=== PATIENT | female | born 1985 | race Caucasian/White ===

== ENCOUNTER 2022-01-15 16:09 | Inpatient (IN) | payer OTHER, SELFPAY ==
[2022-01-15 16:11] VITALS: BP 142/93; PULSE 122; RESP 16; TEMP 36.7; O2SAT 98; BMI 28.3
--- NOTE | 2022-01-15 16:25 | EX.ED.DYSGE1 ---
HPI History of Present Illness Chief Complaint: ETOH Intox Informant: patient and family Narrative Narrative: 36-year-old female states that she is an alcoholic and would like to have inpatient detox. She states that she came to this decision last week and reached out to 180 on Saturday. She is very nervous and scared and reached out to them again today and called family notes that she was ready to seek help. She denies any pending legal issues. She states that she talked to her family doctor's office last week and told that she had been drinking and they called her in some medications. She states she has not been taking any of those medicines. Last drink was just prior to arrival. She denies any illicit drug use. [facility] Medical History Alcohol abuse delivery delivered Cholecystectomy planned Allergy/AdvReac Type Severity Reaction Status Date / Time adhesive tape AdvReac Rash Verified 01/15/22 16:13 Surgical History H/O eye surgery Social History (Updated 01/15/22 @ 16:[address] Chad Esparza DO) Smoking Status: Smoker, status unknown alcohol intake: current ROS ROS ED Constitutional Constitutional ED: Denies chills or weight loss Eyes Eyes: Denies change in vision or diplopia ENT ENT ED: Denies ear pain, rhinorrhea or sore throat Cardiovascular Cardiovascular: Denies chest pain, orthopnea, palpitations or racing heartbeat Respiratory/Chest Respiratory/Chest: Denies cough, dyspnea or orthopnea Gastrointestinal Gastrointestinal: Denies abdominal pain, diarrhea, nausea or vomiting Genitourinary Genitourinary ED: Denies dysuria, hematuria or urinary frequency Musculoskeletal Musculoskeletal: Denies arthralgias or myalgias Integumentary Denies abscess or rash Neurologic Neurologic: Denies headache(s) or weakness Psychiatric Psychiatric: Reports anxiety; Denies depression, suicidal ideation or suicidal thoughts Endocrine Endocrinology: Denies polydipsia, polyphagia or polyuria Allergic/Immunologic Allergic/Immunologic ED: Denies mouth swelling, tongue swelling or urticaria EXAM Physical Exam Const Vital Signs: 01/15/22 16:11 Temperature 98.1 F Temperature Source Temporal Pulse Rate 122 H Respiratory Rate 16 Blood Pressure 142/93 H Blood Pressure Mean 109 Pulse Ox 98 Oxygen Delivery Method Room Air Positive well nourished and well developed General Appearance ED: well developed HEENT Reports normocephalic, head/scalp atraumatic, TM's clear and moist mucous membranes Negative for trauma Tympanic Membrane ED: Yes TM's clear Eyes PERRL and EOMs intact bilaterally Neck no lymphadenopathy, supple and no JVD Resp normal respiratory effort and clear to auscultation bilaterally Cardio regular rate, regular rhythm and no murmurs GI normal to inspection, nondistended, normoactive bowel sounds and non-tender Palpation: soft Back/Spine no CVA tenderness and normal ROM Extremity normal to inspection General Extremety ED: Negative for edema General Extremity: Negative for edema Neuro oriented x3 and CN's II-XII intact bilaterally Sensorium / Orientation: alert Motor Exam: strength 5/5 throughout Psych mental status grossly normal Mood & Affect: Negative for depressed or tearful Skin no rashes or lesions noted and no wounds MDM MDM MDM Narrative Medical decision making narrative: Patient will be medically cleared and the patient will be admitted if she is not . Discharge Plan Dx/Rx/DC Orders Clinical Impression: Alcohol withdrawal Disposition Disposition: Acute Care Hospital [facility]
--- NOTE | 2022-01-15 16:35 | NURSING ---
MED SURG WHITE ALCOHOL WITHDRAWAL
--- NOTE | 2022-01-15 16:43 | HP.PCM.HOS_ITS ---
HPI - General General Date of Admission: 01/15/22 Date of Service: 01/15/22 Chief Complaint: EtOH abuse, detoxification request. HPI Narrative The patient is a 36 y/o F w/ PMHx: Asthma, Allergic rhinitis, EtOH abuse (recently started 08/2021 200-400 mL fireball and 1/ 750 ml 42 proof vodka daily) who presents to the [facility] ED on 01/15/22 with history of significant anxiety and depression noted that she started drinking August and had this from her family however this was eventually found out and following lengthy discussion with her family she was brought to the ED per her father for assistance with detoxification per her desire. Patient admits that she is depressed and anxious and has had poor appetite eating very minimally. She states she does not have any active hobbies and finds minimal rosa in anything. During evaluation patient would not make any eye contact and very flat affect extremely evident. Patient reports that her does not have any alcohol or substance abuse problem. She has 2 children at home who are age 6 and 9. In the ED patient does have mild tremors as well as mild nausea and poor intake and notes that she took a small amount of alcohol intake approximately 30 minutes to 1 hour prior to ED arrival. Initial evaluation in the ED included T98.1, heart rate 122, BP 142/93, respiratory rate 16, 98% on room air. [facility] Medical History (Updated 01/15/22 @ 17:17 by Maude Rascon) Alcohol abuse Anxiety Asthma Cholecystectomy planned Depression Environmental allergies GERD (gastroesophageal reflux disease) Migraines Home Medications albuterol 90 mcg INHALATION Q4H PRN PRN 01/15/22 [History Last Taken Unknown] mometasone-formoterol [Dulera] 2 puff INHALATION Q12H PRN 01/15/22 [History Last Taken 01/14/22] Allergy/AdvReac Type Severity Reaction Status Date / Time adhesive tape AdvReac Rash Verified 01/15/22 16:13 Family History (Updated 01/15/22 @ 16:[address] Leia Cox MD) Mother Cancer History of Breast CA. Father Hypertension Surgical History (Updated 01/15/22 @ 16:[address] Leia Cox MD) H/O section H/O eye surgery S/P cholecystectomy Social History (Updated 01/15/22 @ 16:[address] Leia Cox MD) household members: spouse and family Smoking Status: Never smoker alcohol intake: current alcohol intake frequency: 3 or more drinks per day details: Daily 200-400 mL fireball, 1/2, 750 ml bottle 42 proof vodka daily. substance use type: does not use ROS ROS Narrative Admission Review of Systems: CONSTITUTIONAL: No weight loss, fever, chills, + weakness or fatigue. HEENT: Eyes: No visual loss, blurred vision, double vision or yellow sclerae. Ears, Nose, Throat: No hearing loss, sneezing, congestion, runny nose or sore throat. SKIN: No rash or itching, lesions, wounds. CARDIOVASCULAR: No chest pain, chest pressure or chest discomfort, palpitations, edema, orthopnea, syncopal events. RESPIRATORY: No shortness of breath, cough or sputum, wheezing, hemoptysis. GASTROINTESTINAL: + anorexia, nausea, No vomiting or diarrhea, abdominal pain, melena, BRBPR. GENITOURINARY: No dysuria, frequency, urgency or retention. NEUROLOGICAL: + Mild tremors, No headache, dizziness, syncope, paralysis, ataxia, numbness or tingling in the extremities, focal weakness, change in bowel or bladder control, seizure. MUSCULOSKELETAL: No muscle, back pain, joint pain or stiffness. HEMATOLOGIC: No anemia, bleeding or bruising. LYMPHATICS: No enlarged nodes. No history of splenectomy. PSYCHIATRIC: + depression or anxiety. ENDOCRINOLOGIC: No reports of sweating, cold or heat intolerance. No polyuria or polydipsia. ALLERGIES: + history of asthma, hives, eczema or rhinitis. Vital Signs Vital Signs Vital Signs: 01/15/22 16:11 Temperature 98.1 F Temperature Source Temporal Pulse Rate 122 H Respiratory Rate 16 Blood Pressure 142/93 H Blood Pressure Mean 109 Pulse Ox 98 Oxygen Delivery Method Room Air Weight Weight: 155 lb Body Mass Index (BMI) 28.3 Physical Exam Narrative Physical Examination: General: Awake, alert, oriented x 3 and cooperative, seated upright in the ED bed, extremely flat affect, mild tremors evident. Skin: Normal color, normal turgor, no icterus, no cyanosis. HEENT: AT/NC, EOMI, PERRLA, dry MM, no carotid bruits or JVD noted. Lungs: CTA bilaterally, moderate effort, mild decrease BL bases, no rales, ronchi or wheezing. Heart: Tachycardic with regular rhythm; no gallop, rub audible. Abdomen: Soft, overweight, NTTP, ND, hyperactive distant BS, no HSM. Extremities: No cyanosis, clubbing, or edema. Neurological: Patient awake, alert, oriented as noted, cognitive function intact; pupils equally reactive to light and accommodation, cranial nerves II- XII grossly normal, moving all 4 extremities, no focal deficits, strength preserved, mild tremors noted, extremely flat affect and would not make eye contact unless requested. Psychiatric: Affect appears flat, evident depression, no obvious evidence of anxiety but history noted. Results Lab / Micro Data Result Diagrams: 01/15/22 17:00 01/15/22 17:00 Assessment & Plan Assessment/Plan (1) Alcohol withdrawal: QUALIFIERS: Complication of substance-induced condition: uncomplicated Qualified Code(s): F10.230 - Alcohol dependence with withdrawal, uncomplicated PLAN: The patient is a 36 y/o F w/ PMHx: Asthma, Allergic rhinitis, EtOH abuse starting recently 08/2021 who presents to the [facility] ED on 01/15/22 with history of significant anxiety and depression noted that she started drinking in August and had this from her family however this was eventually found out and following lengthy discussion with her family she was brought to the ED per her father for assistance with detoxification per her desire. #1. Acute EtOH Withdrawal: Will admit to medical surgical floor, routine labs obtained in the ED upon presentation and pending upon evaluation. Given interest in sobriety, will initiate and continue on protocol with taper course of Phenobarbital, scheduled gabapentin for seizure prophylaxis, as needed Catapres, Bentyl, Vistaril, IV fluids, IV antiemetics, Tylenol as needed for pain. Will consult Case management for assistance for transition to next level of rehabilitation care. Mag, phos pending. Maintain on CIWA protocol concurrently. #2. Chronic asthma with allergic rhinitis: We will have as needed albuterol, clarifying home medications. #3. DVT prophylaxis: Low risk, encourage ambulation. Charges/Coding Visit Charges Inpatient E&M: 17124 Init Hosp L2
[2022-01-15 17:12] VITALS: BP 112/82; PULSE 97; RESP 16; TEMP 36.7; O2SAT 99
[2022-01-15 17:20] LABS: Absolute Lymphocyte Count 1.49 X10^3/uL (0.83-4.51); Absolute Neutrophil Count 6.8 X10^3/uL (2.0-7.7); Basophil# 0.11 X10^3/uL; Basophil% 1.2 % (0-1); Eosinophil# 0.24 X10^3/uL; Eosinophils% 2.5 % (0-5); Hematocrit 38.4 % (37-47); Hemoglobin 12.5 g/dL (12.0-15.0); Lymphocyte # 1.49 X10^3/ul (0.83-4.51); Lymphocyte % 15.8 % (19-41); Mean Corp Hgb Conc 32.6 g/dL (32-36); Mean Corpuscular Hgb 30.2 pg (27.0-32.0); Mean Corpuscular Volume 92.8 fL (81-99); Monocyte# 0.77 X10^3/uL; Monocyte% 8.1 % (0-10); NRBC Flagged by Analyzer 0 % (0-5); Neutrophil % 71.9 % (47-70); Platelet Count 245 K/mm3 (150-450); RBC Distribution Width CV 13.9 % (11.6-14.6); RBC Distribution Width SD 47.3 fl (35.1-43.9); Red Blood Count 4.14 M/mm3 (4.2-5.4); White Blood Count 9.5 K/mm3 (4.4-11.0)
[2022-01-15 17:39] LABS: International Normalized Ratio 0.9; Prothrombin Time (Protime)PT. 12.3 SECONDS (11.7-14.9)
[2022-01-15 17:40] LABS: Internal QC Validated? YES +Cl - CLEAR BKGD; Pregnancy, Serum, hCG Quali. NEGATIVE Negative
[2022-01-15 17:47] LABS: ALB/GLOB Ratio 1.1 RATIO (0.9-2.4); AST(SGOT) 15 U/L (15-37); Alanine Aminotransfer ALT/SGPT 20 U/L (13-56); Alkaline Phosphatase 83 U/L (45-117); Anion Gap 8 (5-15); BUN 7 mg/dL (7-18); BUN/Creat Ratio 8.8 RATIO (10-20); Calcium,Total 8.4 mg/dL (8.5-10.1); Chloride 110 mmol/L (98-107); EST Glomerular Filtration Rate 85 mL/min (>60); Est Glom Filt Rate - Afr Amer 103 mL/min (>60); Estimated Creatinine Clearance 75.41 ml/min; Globulin 3.5 g/dL (2.2-4.2); Glucose 86 mg/dL (74-106); Magnesium 2.2 mg/dL (1.6-2.6); Phosphorus 1.3 mg/dL (2.5-4.9); Potassium 2.8 mmol/L (3.5-5.1); Protein, Total 7.5 g/dL (6.4-8.2); Sodium Level 141 mmol/L (136-145)
[2022-01-15 17:50] LABS: Amphetamine Urine VISTA NEGATIVE (<1000 ng/mL); Barbiturate Urine VISTA NEGATIVE (< 200 ng/mL); Benzodiazepine Urine VISTA NEGATIVE (< 200 ng/mL); Cocaine Urine VISTA NEGATIVE (< 300 ng/mL); Ecstacy Urine VISTA NEGATIVE (< 500 ng/mL); Methadone Urine VISTA NEGATIVE (< 300 ng/mL); PCP Urine VISTA NEGATIVE (< 25 ng/mL); THC Urine VISTA NEGATIVE (< 50 ng/mL); Vista UDS pH Range 6
[2022-01-15 18:07] VITALS: BMI 27.1
[2022-01-15 18:10] VITALS: BP 114/74; PULSE 92; RESP 18; TEMP 36.8; O2SAT 97
[2022-01-15] MEDS: Phenobarbital 32.4 MG Tablet PO ×2 (19:02→22:50)
[2022-01-15] MEDS: Lactated Ringers 1,000 ML 125 ML IV (19:31)
[2022-01-15] MEDS: 0.9% Saline Lock 10 ML Syringe IV (19:32)
[2022-01-15] MEDS: Ondansetron 8 MG Tablet PO (20:32)
[2022-01-15] MEDS: hydrOXYzine PAM 25 MG Capsule 50 MG PO (20:32)
[2022-01-15 22:48] VITALS: BP 102/73; PULSE 77; RESP 18; TEMP 37.2; O2SAT 97
[2022-01-15] MEDS: traZODone 100 MG Tablet PO (22:51)
[2022-01-16 03:15] VITALS: BP 99/70; PULSE 77; RESP 18; TEMP 36.4; O2SAT 98
[2022-01-16] MEDS: Phenobarbital 32.4 MG Tablet PO ×6 (03:19→22:31)
[2022-01-16] MEDS: Gabapentin 300 MG Capsule PO ×3 (03:19→22:32)
[2022-01-16] MEDS: Dicyclomine 10 MG Capsule 20 MG PO ×2 (03:19→17:46)
[2022-01-16] MEDS: Thiamine Hydrochloride 100 MG Tablet PO (06:53)
[2022-01-16] MEDS: Folic Acid 1 MG Tablet PO (06:53)
[2022-01-16 07:16] VITALS: O2SAT 96
[2022-01-16] MEDS: Potassium Chloride Oral Tablet 20 MEQ 60 MEQ PO (07:22)
[2022-01-16 08:40] VITALS: BP 105/62; PULSE 87; RESP 16; TEMP 36.9; O2SAT 98
[2022-01-16] MEDS: hydrOXYzine PAM 25 MG Capsule 50 MG PO ×3 (08:50→17:46)
--- NOTE | 2022-01-16 10:46 | PCM.PN.HOSP ---
Subjective Subjective Patient states she had some nausea and vomiting yesterday but vomiting has improved. Still some intermittent nausea. No diarrhea. Complains of some tremor and anxiety. Eye contact is poor throughout her conversation. Objective Data Objective Data Vital Signs: Vital Signs Temp Pulse Resp BP Pulse Ox 98.4 F 87 16 105/62 98 01/16/22 08:40 01/16/22 08:40 01/16/22 08:40 01/16/22 08:40 01/16/22 08:40 Oxygen Delivery Method Room Air Weight: 67.4 kg Body Mass Index (BMI) 27.1 Intake & Output: Intake and Output for Last 24 Hours 01/14/22 01/15/22 01/16/22 23:59 23:59 23:59 Intake Total 1000 / 1000 Balance 1000 / 1000 Lab / Micro Data Result Diagrams: 01/15/22 17:00 01/15/22 17:00 Labs: Laboratory Results - last 24 hr 01/15/22 16:50: Urine Opiates Screen NEGATIVE, Urine Methadone Screen NEGATIVE, Ur Barbiturates Screen NEGATIVE, Ur Phencyclidine Scrn NEGATIVE, Ur Amphetamines Screen NEGATIVE, MDMA (Ecstasy) Screen NEGATIVE, U Benzodiazepines Scrn NEGATIVE, Urine Cocaine Screen NEGATIVE, U Cannabinoids Screen NEGATIVE, Ur Drug Screen Comment 01/15/22 17:00: WBC 9.5, RBC 4.14 L, Hgb 12.5, Hct 38.4, MCV 92.8, MCH 30.2, MCHC 32.6, RDW Std Deviation 47.3 H, RDW Coeff of Jordan 13.9, Plt Count 245, MPV 10.0, Immature Gran % (Auto) 0.500, Neut % (Auto) 71.9 H, Lymph % (Auto) 15.8 L, Casey % (Auto) 8.1, Eos % (Auto) 2.5, Baso % (Auto) 1.2 H, Absolute Neuts (auto) 6.8, Absolute Lymphs (auto) 1.49, Nucleated RBC % 0 01/15/22 17:00: PT 12.3, INR 0.9 01/15/22 17:00: Sodium 141, Potassium 2.8 L, Chloride 110 H, Carbon Dioxide 23.0, Anion Gap 8, BUN 7, Creatinine 0.80, Estim Creat Clear Calc 75.41, Est GFR (MDRD) Af Amer 103, Est GFR (MDRD) Non-Af 85, BUN/Creatinine Ratio 8.8 L, Glucose 86, Calcium 8.4 L, Magnesium 2.2, Total Bilirubin 0.60, AST 15, ALT 20, Alkaline Phosphatase 83, Total Protein 7.5, Albumin 4.0, Globulin 3.5, Albumin/Globulin Ratio 1.1 01/15/22 17:00: Ethyl Alcohol 182.0 01/15/22 17:00: Serum , Qual NEGATIVE 01/15/22 17:00: Phosphorus 1.3 L Physical Exam Const alert, oriented x3, no apparent distress, average body habitus and well nourished Exam Limitations: no limitations HEENT head/scalp atraumatic and moist oral mucous membranes HEENT Narrative: Dentition is good, Mallampati 2, no thrush Head and Scalp: normocephalic Resp normal respiratory effort, no retractions, no use of accessory muscles and clear to auscultation bilaterally Auscultation: Negative for crackles, rales, rhonchi or wheezes Cardio regular rate, regular rhythm, S1 normal heart sound, S2 normal heart sound, no murmurs, no rub, no gallops, no clicks and no JVD GI normal to inspection, nondistended, normoactive bowel sounds, soft to palpation, non-tender and non-distended; Negative for hepatosplenomegaly Extremity no clubbing, cyanosis or edema Peripheral Pulses: Yes pulses 2+ throughout Neuro oriented x3, CN's II-XII intact bilaterally, moves all extremities and no focal motor deficits Sensorium / Orientation: awake and alert Speech: speech normal Psych Psych Narrative: Affect is flat, eye contact is poor Mood & Affect: depressed Assessment & Plan Assessment/Plan (1) Hypokalemia: (2) Hypophosphatemia: PLAN: Acute alcohol withdrawal -Patient has been drinking about 500 cc to 750 cc of fireball daily and approximately one half bottle of vodka -Has been drinking heavily since approximately September -Phenobarbital taper started -Continue supportive medications -180 consult pending Hypokalemia -60 mEq of p.o. potassium ordered -Repeat potassium in a.m. Hypophosphatemia -30 mmol of sodium phosphate ordered -Repeat Phos level in a.m. Asthma -Continue as needed albuterol inhaler -Continue home Dulera Depression -Patient with extremely poor eye contact -Would benefit greatly from psychiatric/psychologist/counseling intervention -We will start Lexapro 10 mg DVT prophylaxis -Low risk -Early ambulation protocol Charges/Coding Visit Charges Inpatient E&M: 77992 Subs Hosp L2
[2022-01-16] MEDS: Ondansetron 8 MG Tablet PO (11:32)
--- NOTE | 2022-01-16 12:15 | ADDICTION ---
This editorial writer met with PT to conduct ASAM, MSE, AUDIT, DUDIT assessments and to plan for d/c. PT A+Ox4 and participated actively. All assessments completed and placed in PT's chart. PT plans to f/u with follow-up treatment services, however she wanted to discuss it with her family upon d/c. This worker offered resources based on her listed wants and needs. PT did not indicate a need for transportation post d/c from [facility].
[2022-01-16 13:58] VITALS: BP 107/68; PULSE 78; RESP 16; TEMP 36.9; O2SAT 100
[2022-01-16 15:23] LABS: Anion Gap 4 (5-15); BUN 6 mg/dL (7-18); Calcium,Total 8.6 mg/dL (8.5-10.1); Chloride 107 mmol/L (98-107); Creatinine, Serum 0.75 mg/dL (0.55-1.02); EST Glomerular Filtration Rate 91 mL/min (>60); Est Glom Filt Rate - Afr Amer 110 mL/min (>60); Estimated Creatinine Clearance 80.44 ml/min; Glucose 95 mg/dL (74-106); Potassium 3.6 mmol/L (3.5-5.1); Sodium Level 139 mmol/L (136-145)
[2022-01-16 22:27] VITALS: BP 90/59; PULSE 87; RESP 16; TEMP 36.8; O2SAT 97
[2022-01-16] MEDS: Ibuprofen 600 MG Tablet PO (22:31)
[2022-01-16] MEDS: traZODone 100 MG Tablet PO (22:31)
[2022-01-17] MEDS: Phenobarbital 32.4 MG Tablet PO ×6 (03:09→23:01)
[2022-01-17] MEDS: hydrOXYzine PAM 25 MG Capsule 50 MG PO ×4 (03:10→21:39)
[2022-01-17] MEDS: Dicyclomine 10 MG Capsule 20 MG PO ×3 (03:10→15:21)
[2022-01-17 03:13] VITALS: BP 105/59; PULSE 81; RESP 16; TEMP 36.8
[2022-01-17] MEDS: Gabapentin 300 MG Capsule PO ×2 (06:38→18:54)
[2022-01-17 09:07] VITALS: BP 102/58; PULSE 77; RESP 18; TEMP 36.4; O2SAT 100
[2022-01-17] MEDS: Thiamine Hydrochloride 100 MG Tablet PO (09:20)
[2022-01-17] MEDS: Folic Acid 1 MG Tablet PO (09:20)
[2022-01-17] MEDS: Ibuprofen 600 MG Tablet PO (09:21)
[2022-01-17] MEDS: Ondansetron 8 MG Tablet PO ×2 (09:21→18:54)
[2022-01-17] MEDS: Loratadine 10 MG Tablet PO (11:44)
--- NOTE | 2022-01-17 12:22 | PCM.PN.HOSP ---
Subjective Subjective Patient states she is having some continued nausea, anxiety, and tremor. Asks for an antihistamine due to a flareup of her allergies. No further emesis or diarrhea. Indicates she plans to follow-up as an outpatient with 180. Objective Data Objective Data Vital Signs: Vital Signs Temp Pulse Resp BP Pulse Ox 97.5 F L 77 18 102/58 L 100 01/17/22 09:07 01/17/22 09:07 01/17/22 09:07 01/17/22 09:07 01/17/22 09:07 Oxygen Delivery Method Room Air Weight: 67.4 kg Body Mass Index (BMI) 27.1 Intake & Output: Intake and Output for Last 24 Hours 01/15/22 01/16/22 01/17/22 23:59 23:59 23:59 Intake Total 1000 / 1000 Balance 1000 / 1000 Lab / Micro Data Result Diagrams: 01/15/22 17:00 01/16/22 14:46 Labs: Laboratory Results - last 24 hr 01/16/22 14:46: Sodium 139, Potassium 3.6, Chloride 107, Carbon Dioxide 28.0, Anion Gap 4 L, BUN 6 L, Creatinine 0.75, Estim Creat Clear Calc 80.44, Est GFR (MDRD) Af Amer 110, Est GFR (MDRD) Non-Af 91, BUN/Creatinine Ratio 8.0 L, Glucose 95, Calcium 8.6, Magnesium 2.0 Physical Exam Const alert, oriented x3, no apparent distress, average body habitus and well nourished Constitutional Narrative: Middle-aged white female walking around room, eye contact is extremely poor, appears nontoxic and comfortable Exam Limitations: no limitations HEENT head/scalp atraumatic and moist oral mucous membranes HEENT Narrative: Mallampati is 2, no thrush Head and Scalp: normocephalic Resp normal respiratory effort, no retractions, no use of accessory muscles and clear to auscultation bilaterally Auscultation: Negative for crackles, rales, rhonchi or wheezes Cardio regular rate, regular rhythm, S1 normal heart sound, S2 normal heart sound, no murmurs, no rub, no gallops, no clicks and no JVD GI normal to inspection, nondistended, normoactive bowel sounds, soft to palpation, non-tender and non-distended; Negative for hepatosplenomegaly Extremity no clubbing, cyanosis or edema Neuro oriented x3, moves all extremities and no focal motor deficits Neuro Narrative: Very fine tremor noted Sensorium / Orientation: awake and alert Speech: speech normal Psych Psych Narrative: Affect is flat, eye contact remains extremely poor Mood & Affect: depressed Assessment & Plan Assessment/Plan (1) Alcohol withdrawal: QUALIFIERS: Complication of substance-induced condition: uncomplicated Qualified Code(s): F10.230 - Alcohol dependence with withdrawal, uncomplicated (2) Seasonal allergies: PLAN: Acute alcohol withdrawal -Patient has been drinking about 500 cc to 750 cc of fireball daily and approximately one half bottle of vodka -Has been drinking heavily since approximately September -Continue phenobarbital taper -Continue supportive medications -180 consult has evaluated the patient and the plan is to follow-up as an outpatient Hypokalemia - resolved Hypophosphatemia - resolved Seasonal allergies -We will start Claritin -Could consider nasal spray depending on effectiveness of Claritin Asthma -Continue as needed albuterol inhaler -Continue home Dulera Depression -Patient with extremely poor eye contact -Would benefit greatly from psychiatric/psychologist/counseling intervention -Continue Lexapro 10 mg daily DVT prophylaxis -Low risk -Early ambulation protocol Charges/Coding Visit Charges Inpatient E&M: 67644 Subs Hosp L2
[2022-01-17] MEDS: Mag Hydrox/Al Hydrox/Simeth 30 ML UDC PO (13:33)
[2022-01-17] MEDS: Acetaminophen 325 MG Tablet 650 MG PO (13:33)
[2022-01-17] MEDS: Escitalopram Oxalate 10 MG Tablet PO (13:34)
[2022-01-17 13:37] VITALS: BP 92/65; PULSE 95; RESP 18; TEMP 36.9; O2SAT 98
--- NOTE | 2022-01-17 14:49 | CASEMGMT ---
Social Work Note SW updated that pt is depressed. SW in to speak with pt. SW introduced self and role at [facility]. Pt states that she is doing ok, states she feels like garbage today due to the withdrawal symptoms. Pt states that she is used to being around people so being isolated from people while at [facility] is different. Pt states that she was sober for a year and half and then decided to drink again. SW asked pt if anything happened/stress led to her drinking. 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 SW spoke with pt about stress and provided support to pt. Pt states that she barely gets to talk to her . Pt states that he works second shift so unfortunately he is not someone that she can talk to regarding stress. Pt states that her took the week off from work while pt is at [facility] so he can take care of the children. Pt states that she does have history of Anxiety. Pt states that she takes Buspar and Clonazepam. Pt denied any depression. Pt denied any history of suicidal thoughts/plans/ideations. Pt denied any current suicidal thoughts/plans/ideations. Pt states that she see's a counselor named Del at [facility] 1x a week. Pt states that her plan at discharge is to resume counseling with Del and to complete IOP program at [facility]. Pt denied any concerns or needs at this time. Demetrice Ferro TRAVELING CONSTRUCTION SUPERINTENDENT, FAMILY PRACTICE MD
[2022-01-17 15:19] VITALS: BP 104/67; PULSE 83; RESP 18; TEMP 36.5; O2SAT 98
[2022-01-17 21:33] VITALS: BP 101/75; PULSE 89; RESP 18; TEMP 36.9; O2SAT 99
[2022-01-17] MEDS: traZODone 100 MG Tablet PO (21:39)
[2022-01-18 03:36] VITALS: BP 103/69; PULSE 105; RESP 16; TEMP 36.9; O2SAT 98
[2022-01-18] MEDS: hydrOXYzine PAM 25 MG Capsule 50 MG PO ×4 (03:46→20:21)
[2022-01-18] MEDS: Phenobarbital 32.4 MG Tablet PO ×4 (03:46→20:20)
[2022-01-18 08:24] VITALS: BP 113/69; PULSE 94; RESP 18; TEMP 36.4; O2SAT 98
[2022-01-18] MEDS: Dicyclomine 10 MG Capsule 20 MG PO ×2 (08:26→15:35)
[2022-01-18] MEDS: Ondansetron 8 MG Tablet PO (08:26)
[2022-01-18] MEDS: Thiamine Hydrochloride 100 MG Tablet PO (08:26)
[2022-01-18] MEDS: Folic Acid 1 MG Tablet PO (08:27)
[2022-01-18] MEDS: Escitalopram Oxalate 10 MG Tablet PO (08:27)
[2022-01-18] MEDS: Ibuprofen 600 MG Tablet PO ×2 (08:27→20:21)
[2022-01-18] MEDS: Loratadine 10 MG Tablet PO (08:27)
[2022-01-18 09:45] VITALS: O2SAT 98
--- NOTE | 2022-01-18 11:37 | PCM.PN.HOSP ---
Subjective Subjective Patient reports persistent nausea with emesis this morning. P.o. intake she reports has been poor. Affect is still extremely flat and eye contact is poor. Patient wanting to minimally interact. Objective Data Objective Data Vital Signs: Vital Signs Temp Pulse Resp BP Pulse Ox 97.6 F L 94 18 113/69 98 01/18/22 08:24 01/18/22 08:24 01/18/22 08:24 01/18/22 08:24 01/18/22 09:45 Oxygen Delivery Method Room Air Weight: 67.4 kg Body Mass Index (BMI) 27.1 Intake & Output: Intake and Output for Last 24 Hours 01/16/22 01/17/22 01/18/22 23:59 23:59 23:59 Intake Total 1000 / 1000 360 / 360 Balance 1000 / 1000 360 / 360 Lab / Micro Data Result Diagrams: 01/15/22 17:00 01/16/22 14:46 Physical Exam Const alert, oriented x3, no apparent distress, average body habitus and well nourished Constitutional Narrative: Middle-aged white female walking sitting up in bed coloring in a coloring book, eye contact is extremely poor, appears nontoxic and comfortable Exam Limitations: no limitations HEENT head/scalp atraumatic and moist oral mucous membranes HEENT Narrative: Mallampati 2, no thrush Head and Scalp: normocephalic Resp normal respiratory effort, no retractions, no use of accessory muscles and clear to auscultation bilaterally Auscultation: Negative for crackles, rales, rhonchi or wheezes Cardio regular rate, regular rhythm, S1 normal heart sound, S2 normal heart sound, no murmurs, no rub, no gallops, no clicks and no JVD GI normal to inspection, nondistended, normoactive bowel sounds, soft to palpation, non-tender and non-distended; Negative for hepatosplenomegaly Extremity no clubbing, cyanosis or edema Peripheral Pulses: Yes pulses 2+ throughout Neuro oriented x3, moves all extremities and no focal motor deficits Neuro Narrative: Very fine tremor noted Sensorium / Orientation: awake and alert Speech: speech normal Psych Psych Narrative: Affect is flat, eye contact remains extremely poor Mood & Affect: depressed Assessment & Plan Assessment/Plan (1) Alcohol withdrawal: QUALIFIERS: Complication of substance-induced condition: uncomplicated Qualified Code(s): F10.230 - Alcohol dependence with withdrawal, uncomplicated (2) Seasonal allergies: PLAN: Acute alcohol withdrawal -Patient has been drinking about 500 cc to 750 cc of fireball daily and approximately one half bottle of vodka -Has been drinking heavily since approximately September -Continue phenobarbital taper --> taper will be completed on the a.m. of 01/20/2022 -Continue supportive medications -180 consult has evaluated the patient and the plan is to follow-up as an outpatient Seasonal allergies -Continue Claritin -Could consider nasal spray depending on effectiveness of Claritin Asthma -Continue as needed albuterol inhaler -Continue home Dulera Depression -Patient with extremely poor eye contact -Would benefit greatly from psychiatric/psychologist/counseling intervention -Continue Lexapro 10 mg daily--> started this hospitalization DVT prophylaxis -Low risk -Early ambulation protocol Charges/Coding Visit Charges Inpatient E&M: 31248 Subs Hosp L2
[2022-01-18] MEDS: Albuterol 2.5 MG/3 ML VIAL.NEB. INHALATION (12:37)
[2022-01-18 12:43] VITALS: PULSE 82; RESP 20
--- NOTE | 2022-01-18 13:43 | ADDICTION ---
Addiction therapist met w/pt today. She reports that she is feeling some anxiety about going home. She reports that she has hidden bottles in random places and is worried her wont find them all.Therapist encouraged her to write a list of places they are hidden and we could pass the information onto him. Pt reports she is ready to continue her recovery at home. Supportive counseling was given.
[2022-01-18 15:33] VITALS: BP 108/74; PULSE 92; RESP 18; TEMP 36.8; O2SAT 98
[2022-01-18] MEDS: Gabapentin 300 MG Capsule PO (15:35)
[2022-01-18 20:16] VITALS: BP 122/66; PULSE 78; RESP 18; TEMP 36.9; O2SAT 97
[2022-01-18] MEDS: traZODone 100 MG Tablet PO (23:13)
[2022-01-19 02:50] VITALS: BP 107/59; PULSE 93; RESP 18; TEMP 36.9; O2SAT 96
[2022-01-19] MEDS: Phenobarbital 32.4 MG Tablet PO ×4 (02:55→20:10)
[2022-01-19] MEDS: hydrOXYzine PAM 25 MG Capsule 50 MG PO ×3 (02:59→17:06)
[2022-01-19] MEDS: Gabapentin 300 MG Capsule PO ×3 (02:59→20:46)
[2022-01-19 07:01] VITALS: O2SAT 95
[2022-01-19 08:00] VITALS: BP 103/69; PULSE 82; RESP 18; TEMP 36.7; O2SAT 97
[2022-01-19] MEDS: Loratadine 10 MG Tablet PO (08:03)
[2022-01-19] MEDS: Escitalopram Oxalate 10 MG Tablet PO (08:03)
[2022-01-19] MEDS: Thiamine Hydrochloride 100 MG Tablet PO (08:03)
[2022-01-19] MEDS: Folic Acid 1 MG Tablet PO (08:03)
[2022-01-19] MEDS: Ondansetron 8 MG Tablet PO ×2 (08:08→17:06)
[2022-01-19] MEDS: Ibuprofen 600 MG Tablet PO ×2 (08:08→23:21)
--- NOTE | 2022-01-19 12:32 | PCM.PN.HOSP ---
Documented by User: Vahid MCCLURE 01/19/22 12:38 Subjective Subjective Patient is a 36-year-old female comfortably resting in bed, alert and orient x3. Patient denies any current withdrawal symptoms, feels that her N/V/D and restless legs have improved from admission. Does not appear in acute distress. Objective Data Objective Data Vital Signs: Vital Signs Temp Pulse Resp BP Pulse Ox 98.1 F 82 18 103/69 97 01/19/22 08:00 01/19/22 08:00 01/19/22 08:00 01/19/22 08:00 01/19/22 08:00 Oxygen Delivery Method Room Air Weight: 148 lb 9.465 oz Body Mass Index (BMI) 27.1 Intake & Output: Intake and Output for Last 24 Hours 01/17/22 01/18/22 01/19/22 23:59 23:59 23:59 Intake Total 360 / 360 Balance 360 / 360 Lab / Micro Data Result Diagrams: 01/15/22 17:00 01/16/22 14:46 Physical Exam Const alert, oriented x3 and no apparent distress HEENT head/scalp atraumatic and moist oral mucous membranes Head and Scalp: normocephalic Eyes PERRL, EOMs intact bilaterally and conjunctivae normal Neck no lymphadenopathy, supple and no JVD Resp normal respiratory effort, no retractions and no use of accessory muscles Cardio regular rate, regular rhythm and no JVD GI normal to inspection, nondistended, normoactive bowel sounds and soft to palpation Extremity normal to inspection, full ROM and no clubbing, cyanosis or edema Skin no rashes or lesions noted, no wounds and skin turgor normal Neuro CN's II-XII intact bilaterally Psych affect normal Assessment & Plan Assessment/Plan (1) Alcohol withdrawal: QUALIFIERS: Complication of substance-induced condition: uncomplicated Qualified Code(s): F10.230 - Alcohol dependence with withdrawal, uncomplicated (2) Hypokalemia: (3) Hypophosphatemia: PLAN: Day 4 Discharge planning: Current plan is for patient to discharge home and follow-up with [facility] behavioral services as an outpatient. 1) acute alcohol withdrawal Patient reports an overall improvement in her nausea, vomiting and diarrhea. Reports that her restless legs have improved and reports that her sleep was improved last night. CIWA AR score 8. We will continue phenobarb taper through 01/20, continue thiamine and folic acid, continue supportive medications, patient has 180 consult scheduled on discharge. 2) asthma Not in acute exacerbation, currently satting 97% on room air. Continue Dulera and as needed albuterol. 3) depression Continue Lexapro. 4) seasonal allergies Continue Claritin. DVT prophylaxis - Not indicated. Patient seen by Vahid Espinoza PA-C, under the supervision of Dr. Morin. Time spent on patient care: 9 minutes. Documented by User: Dr. Damien Morin MD 01/19/22 15:52 Objective Data Lab / Micro Data Result Diagrams: 01/15/22 17:00 01/16/22 14:46 Charges/Coding Addendum Addendum: Dr. Morin: I personally reviewed the chart and examined the patient, and agree with the above findings. 36-year-old female here for alcohol detox. She says that she has a counselor that she will follow-up with next week however if she would like to complete her phenobarbital taper, her last dose is this evening and at around 9 PM. She does note that her hallucinations have discontinued and she currently has a CIWA of 1. Clinical time spent in all aspects of patient care: 20 minutes
[2022-01-19] MEDS: Acetaminophen 325 MG Tablet 650 MG PO (13:00)
[2022-01-19 14:32] VITALS: BP 121/86; PULSE 92; RESP 18; TEMP 36.6; O2SAT 96
[2022-01-19] MEDS: Fluticasone 0.05% 1 SPRAY NASAL.SRY 2 SPRAY NASAL (17:06)
[2022-01-19 20:09] VITALS: BP 122/80; PULSE 91; RESP 18; TEMP 36.4; O2SAT 98
[2022-01-19] MEDS: traZODone 100 MG Tablet PO (23:21)
[2022-01-19 23:33] VITALS: BP 112/72; PULSE 72; RESP 17; TEMP 36.6; O2SAT 99
[2022-01-20] MEDS: hydrOXYzine PAM 25 MG Capsule 50 MG PO ×2 (02:30→07:20)
[2022-01-20 02:38] VITALS: BP 104/64; PULSE 78; RESP 18; TEMP 36.6; O2SAT 98
[2022-01-20] MEDS: Ondansetron 8 MG Tablet PO (07:20)
[2022-01-20] MEDS: Senna Tablet 2 TABLET PO (07:20)
[2022-01-20] MEDS: Folic Acid 1 MG Tablet PO (07:21)
[2022-01-20] MEDS: Loratadine 10 MG Tablet PO (07:21)
[2022-01-20] MEDS: Acetaminophen 325 MG Tablet 650 MG PO (07:21)
[2022-01-20] MEDS: Fluticasone 0.05% 1 SPRAY NASAL.SRY 2 SPRAY NASAL (07:22)
[2022-01-20] MEDS: Escitalopram Oxalate 10 MG Tablet PO (07:22)
[2022-01-20] MEDS: Thiamine Hydrochloride 100 MG Tablet PO (07:22)
[2022-01-20 07:28] VITALS: BP 108/67; PULSE 84; RESP 16; TEMP 36.6; O2SAT 99
--- NOTE | 2022-01-20 10:42 | DCINST_ITS ---
Discharge Instructions Diet Discharge Diet: No restrictions Activity Discharge Activity: Return to Normal Activity Weight Bearing Status: Weight bearing as tolerated Dressing / Incision Call your doctor if you observe: Fever of 101 or Higher, Numbness or Tingling, Shortness of breath, Dizziness, Chest pain, Increased palpitations (irregular heartbeat) and Calf discomfort Follow Up Care Please Follow Up With: Primary care provider When: Within the next two weeks. Test Results: Test results from this visit will be discussed in further detail at your follow-up appointment, if applicable. Discharge Plan Admission Admit Date/Time: 01/15/22 16:53 Primary Reason for Your Visit: Alcohol Detox Attending Provider: Damien Morin Instructions Additional Instructions / Restrictions: * Follow up with your [facility] appointment, as scheduled. Discharge Orders/Prescriptions Prescriptions: Continued albuterol 90 mcg/actuation Aerosol 90 mcg INHALATION Q4H PRN PRN (Reason: Shortness Of Breath Or Wheezing) RF: 0 Dulera 100-5 mcg/actuation Hfa Aerosol Inhaler 2 puff INHALATION Q12H PRN (Reason: sob) RF: 0 Referrals / Follow Up: Heaven Wilkinson [Other] - Within 2 Weeks [facility] Doctor,Out of [NON-STAFF] - Disposition Disposition (needs filled in before D/C Order can be placed): Home, Self Care
--- NOTE | 2022-01-20 12:36 | DS.PCM_ITS ---
Documented by User: Vahid MCCLURE 01/20/22 12:45 Providers Date of Admission: 01/15/22 Date of Discharge: 01/20/22 Primary Care Physician: Heaven Wilkinson Reason For Visit: ALCOHOL WITHDRAWAL Diagnosis Discharge Diagnosis (1) Alcohol withdrawal: Status: Acute Code(s): F10.239 - Alcohol dependence with withdrawal, unspecified Qualifiers: Complication of substance-induced condition: uncomplicated Qualified Code(s): F10.230 - Alcohol dependence with withdrawal, uncomplicated (2) Hypokalemia: Status: Resolved Code(s): E87.6 - Hypokalemia (3) Hypophosphatemia: Status: Resolved Code(s): E83.39 - Other disorders of phosphorus metabolism Medications at Discharge Home Medications Dulera 2 puff INHALATION Q12H PRN 01/15/22 albuterol 90 mcg INHALATION Q4H PRN PRN 01/15/22 Hospital Course Summary of Care Provided Minutes Spent on Discharge: 20 Hospital Course: Patient is a 36-year-old female who was admitted to [facility] on 01/15/2022 requesting medical stabilization from alcohol detox. Hospital course and management as below. 1) acute alcohol withdrawal CIWA AR score 7. Patient reports significant improvement in her symptoms overall and feels stable for discharge. Patient was managed on supportive medications, thiamine and folic acid supplementation and full phenobarb taper throughout admission. Patient plans to follow-up with her counselor after discharge. 2) asthma Not in acute exacerbation, currently satting 97% on room air. Continue Dulera. 3) depression Advised patient to follow-up with her primary care provider in regards to her depression. 4) seasonal allergies Advised patient to pick up driver [id number] Claritin. Patient seen by Vahid Espinoza PA-C, under the supervision of Dr. Morin. Time spent on patient care: 20 minutes. Physical Exam Narrative Patient is a 36-year-old female comfortably resting in bed, alert and orient x3. Patient denies any withdrawal symptoms and reports feeling overall well. Plans to follow-up with her counselor after discharge. Const alert, oriented x3 and no apparent distress HEENT normocephalic, head/scalp atraumatic and hearing grossly normal bilaterally Eyes PERRL, EOMs intact bilaterally and conjunctivae normal Neck no lymphadenopathy, supple and no JVD Resp normal respiratory effort, no retractions and no use of accessory muscles Cardio regular rate, regular rhythm and no JVD GI normal to inspection, nondistended, normoactive bowel sounds, soft to palpation and non-tender Extremity normal to inspection, full ROM and no clubbing, cyanosis or edema Skin no rashes or lesions noted Neuro CN's II-XII intact bilaterally Psych affect normal Weight / BMI Weight Weight: 148 lb 9.465 oz Body Mass Index (BMI) 27.1 ABG / Lab / Microbiology Data Result Diagrams: 01/15/22 17:00 01/16/22 14:46 D/C Instructions Discharge Diet: No restrictions Weight Bearing Status: Weight bearing as tolerated Call your doctor if you observe: Fever of 101 or Higher, Numbness or Tingling, Shortness of breath, Dizziness, Chest pain, Increased palpitations (irregular heartbeat) and Calf discomfort Please Follow Up With: Primary care provider When: Within the next two weeks. Meaningful Use Info Meaningful Use Diagnoses (Choose all that apply): None applicable Discharge Plan Admission Admit Date/Time: 01/15/22 16:53 Primary Reason for Your Visit: Alcohol Detox Attending Provider: Damien Morin Instructions Additional Instructions / Restrictions: * Follow up with your 180 appointment, as scheduled. Discharge Orders/Prescriptions Prescriptions: Continued albuterol 90 mcg/actuation Aerosol 90 mcg INHALATION Q4H PRN PRN (Reason: Shortness Of Breath Or Wheezing) RF: 0 Dulera 100-5 mcg/actuation Hfa Aerosol Inhaler 2 puff INHALATION Q12H PRN (Reason: sob) RF: 0 Referrals / Follow Up: Heaven Wilkinson [Other] - Within 2 Weeks [facility] Doctor,Out of [NON-STAFF] - Disposition Disposition (needs filled in before D/C Order can be placed): Home, Self Care Documented by User: Dr. Damien Morin MD 01/20/22 13:30 Providers Date of Admission: 01/15/22 Reason For Visit: ALCOHOL WITHDRAWAL Medications at Discharge Home Medications Dulera 2 puff INHALATION Q12H PRN 01/15/22 albuterol 90 mcg INHALATION Q4H PRN PRN 01/15/22 ABG / Lab / Microbiology Data Result Diagrams: 01/15/22 17:00 01/16/22 14:46 Discharge Plan Admission Admit Date/Time: 01/15/22 16:53 Primary Reason for Your Visit: Alcohol Detox Attending Provider: Damien Morin Instructions Additional Instructions / Restrictions: * Follow up with your 180 appointment, as scheduled. Discharge Orders/Prescriptions Prescriptions: Continued albuterol 90 mcg/actuation Aerosol 90 mcg INHALATION Q4H PRN PRN (Reason: Shortness Of Breath Or Wheezing) RF: 0 Dulera 100-5 mcg/actuation Hfa Aerosol Inhaler 2 puff INHALATION Q12H PRN (Reason: sob) RF: 0 Referrals / Follow Up: Heaven Wilkinson [Other] - Within 2 Weeks [facility] Doctor,Out of [NON-STAFF] - Disposition Disposition (needs filled in before D/C Order can be placed): Home, Self Care Charges/Coding Addendum Addendum: Dr. Morin: I personally reviewed the chart and examined the patient, and agree with the above findings. 36-year-old female here for alcohol detox. She says that she has a counselor that she will follow-up with next week however if she would like to complete her phenobarbital taper, her last dose is this evening and at around 9 PM. She does note that her hallucinations have discontinued and she currently has a CIWA of 1. Clinical time spent in all aspects of patient care: 20 minutes 01/20/2022: She completed her phenobarbital taper last night, her CIWA scores have been around a 1 and she says that she feels better today than she did yesterday. Did have an extensive discussion on mental health and behavioral health she said that she will be able to call her counselor on Saturday to set up intensive outpatient therapy I did offer her again the ability to follow-up with [facility] but she is from [facility]. I discussed with her the plan for discharge today and she expressed understanding of the risk and benefits of going home and would like to go home today. Clinical time spent in all aspects of patient care: 22 minutes Visit Charges Inpatient E&M: [id number] Disch Hosp
== END 2022-01-20 11:55 | disposition home or self-care (01) | DRG 897 ==
LOC: ED 16:34 → MS3 16:58
PROVIDERS: Internal Medicine; Admitting Provider Family Medicine; Emergency Provider Emergency Medicine; Visit Provider Family Medicine
DX: F10.229 Alcohol dependence with intoxication, unspecified (principal); E83.39 Other disorders of phosphorus metabolism; F10.239 Alcohol dependence with withdrawal, unspecified; J45.909 Unspecified asthma, uncomplicated; E87.6 Hypokalemia; F41.9 Anxiety disorder, unspecified; K21.9 Gastro-esophageal reflux disease without esophagitis; F32.A Depression, unspecified; Z79.51 Long term (current) use of inhaled steroids
CPT/HCPCS: 36415; 80048; 80053; 80307; 82077; 83735; 84100; 84703; 85025; 85610; 94640; 99284; J7120; A4216

== ENCOUNTER 2022-07-04 16:19 | Inpatient (IN) | payer OTHER, SELFPAY ==
[2022-07-04 16:21] VITALS: BP 121/78; PULSE 136; RESP 16; TEMP 36.6; O2SAT 95; BMI 27.5
--- NOTE | 2022-07-04 18:05 | EKG12_ITS ---
Test Reason : DYSRHYTHMIA Blood Pressure : / mmHG Vent. Rate : 110 BPM Atrial Rate : 110 BPM P-R Int : 124 ms QRS Dur : 080 ms QT Int : 354 ms P-R-T Axes : 069 017 024 degrees QTc Int : 479 ms Sinus tachycardia Nonspecific ST and T wave abnormality Abnormal ECG Confirmed by CHRISTEN MEJIAS, PORTER ([id number]), material expeditor ESTER HOFFMAN ([id number]) on 07/05/2022 2:04:12 P M Referred By: PL Confirmed By:JIM VELÁSQUEZ MD
--- NOTE | 2022-07-04 18:05 | EX.ED.DYSGE1 ---
HPI History of Present Illness Chief Complaint: Substance Abuse Informant: patient and family Narrative Narrative: Patient presents requesting alcohol detox. She has gone through detox once before in her life and that was here back in December. Patient states that she drinks a bottle of 42 proof vodka a day as well as 2 or more fireball's. I cannot get from her how big these bottles are. She has been drinking heavily for 1 week. She gets some nausea and vomiting but is not having abdominal pain. She has never seen blood in the vomitus or stool. She has not had seizures before. She states she just does not want to live life intoxicated and she wants help. She is not suicidal. She has driven in by family. However, she does want to be here for detox. Only complaint at this time is nausea. [facility] Medical History Alcohol abuse Anxiety Asthma Cholecystectomy planned Depression Environmental allergies GERD (gastroesophageal reflux disease) Migraines Home Medications albuterol 90 mcg/actuation aerosol inhaler 90 mcg inhalation Q4H PRN PRN Shortness Of Breath Or Wheezing 01/15/22 [History Last Taken Unknown] mometasone-formoterol HFA 100 mcg-5 mcg/actuation aerosol inhaler (Dulera) 2 puff inhalation Q12H PRN sob 01/15/22 [History Last Taken 01/14/22] aripiprazole 5 mg tablet (Abilify) 2.5 mg PO QHS 07/04/22 [History Last Taken Unknown] buspirone 10 mg tablet 10 mg PO BID 07/04/22 [History Last Taken Unknown] fluoxetine 40 mg capsule (Prozac) 40 mg PO DAILY 07/04/22 [History Last Taken Unknown] naltrexone microspheres 380 mg intramuscular suspension,extended release (Vivitrol) 380 mg IM QMONTH 07/04/22 [History Last Taken Unknown] tiotropium bromide 1.25 mcg/actuation mist for inhalation (Spiriva Respimat) 2 puff inhalation DAILY 07/04/22 [History Last Taken Unknown] topiramate 50 mg tablet (Topamax) 50 mg PO BID 07/04/22 [History Last Taken Unknown] trazodone 50 mg tablet 50 mg PO QHS 07/04/22 [History Last Taken Unknown] Allergy/AdvReac Type Severity Reaction Status Date / Time adhesive tape AdvReac Rash Verified 07/04/22 16:21 Family History Mother Cancer History of Breast CA. Father Hypertension Surgical History H/O section H/O eye surgery S/P cholecystectomy Social History household members: spouse and family Smoking Status: Never smoker alcohol intake: current alcohol intake frequency: 3 or more drinks per day details: Daily 200-400 mL fireball, 1/2, 750 ml bottle 42 proof vodka daily. substance use type: does not use ROS ROS ED Constitutional Constitutional ED: Denies fever(s) Eyes Eyes: Denies change in vision ENT ENT ED: Denies rhinorrhea Cardiovascular Cardiovascular: Denies chest pain or palpitations Respiratory/Chest Respiratory/Chest: Denies cough or dyspnea Gastrointestinal Gastrointestinal: Reports nausea and vomiting; Denies abdominal pain, constipation, diarrhea or melena Genitourinary Genitourinary ED: Denies dysuria Musculoskeletal Musculoskeletal: Denies myalgias Integumentary Denies rash Neurologic Neurologic: Denies paresthesias Psychiatric Psychiatric: Reports anxiety; Denies suicidal ideation or suicidal thoughts Allergic/Immunologic Allergic/Immunologic ED: Denies urticaria EXAM Physical Exam Const Vital Signs: 07/04/22 16:21 07/04/22 18:15 07/04/22 20:00 Temperature 97.9 F Temperature Source Temporal Pulse Rate 136 H 119 H 101 H Respiratory Rate 16 20 H 18 Blood Pressure 121/78 H 122/75 H Blood Pressure Mean 92 90 Pulse Ox 95 99 Oxygen Delivery Method Room Air Room Air Positive well nourished and well developed Constitutional Narrative: Patient sits in bed with eyes closed. It takes some convincing to get her to actually speak to me. After some convincing she does start talking and telling me the story. General Appearance ED: well developed and NAD; Negative for pallor HEENT Reports moist mucous membranes Eyes EOMs intact bilaterally Neck supple Resp normal respiratory effort and clear to auscultation bilaterally Auscultation: Negative for rales, rhonchi or wheezes Cardio regular rhythm and no murmurs Rate: tachycardic GI normal to inspection, nondistended, normoactive bowel sounds and non-tender GI Narrative: At first I thought the patient may have some tenderness. But she states pressing on her upper abdomen just worsens her nausea but its not causing pain. Palpation: soft Back/Spine no CVA tenderness Extremity normal to inspection Neuro oriented x3 Psych Psych Narrative: Somewhat flat affect Skin no rashes or lesions noted Skin Narrative: No petechiae. General Skin Exam: Negative for jaundice or pallor MDM MDM MDM Narrative Medical decision making narrative: Blood work shows nonspecific elevation of white count. INR is normal. Liver function tests are normal. Electrolytes show mildly decreased potassium but this should self correct with diet. is negative. Alcohol is 198. Heart rate is down to 101. Nausea is better. She will be admitted. Case was discussed with hospitalist. Lab Data Attestation: I reviewed the patient's lab results. Labs: Laboratory Results - last 24 hr 07/04/22 07/04/22 07/04/22 18:30 18:30 18:30 WBC 11.9 H RBC 4.00 L Hgb 12.0 Hct 36.8 L MCV 92.0 MCH 30.0 MCHC 32.6 RDW Std Deviation 42.3 RDW Coeff of Jordan 12.6 Plt Count 242 MPV 10.2 Immature Gran % (Auto) 0.500 Neut % (Auto) 82.8 H Lymph % (Auto) 9.5 L [place] % (Auto) 5.7 Eos % (Auto) 1.0 Baso % (Auto) 0.5 Absolute Neuts (auto) 9.9 H Absolute Lymphs (auto) 1.13 Nucleated RBC % 0 PT 12.7 INR 1.0 Sodium 142 Potassium 3.0 L Chloride 109 H Carbon Dioxide 23.0 Anion Gap 10 BUN 12 Creatinine 0.76 Estim Creat Clear Calc 78.60 Est GFR (MDRD) Af Amer 110 Est GFR (MDRD) Non-Af 91 BUN/Creatinine Ratio 15.9 Glucose 87 Calcium 8.5 Phosphorus Magnesium Total Bilirubin 0.50 AST 24 ALT 25 Alkaline Phosphatase 83 Total Protein 7.1 Albumin 3.6 Globulin 3.5 Albumin/Globulin Ratio 1.0 Lipase 235 Serum , Qual Ethyl Alcohol 07/04/22 07/04/22 07/04/22 18:30 18:30 18:30 WBC RBC Hgb Hct MCV MCH MCHC RDW Std Deviation RDW Coeff of Jordan Plt Count MPV Immature Gran % (Auto) Neut % (Auto) Lymph % (Auto) Plumas % (Auto) Eos % (Auto) Baso % (Auto) Absolute Neuts (auto) Absolute Lymphs (auto) Nucleated RBC % PT INR Sodium Potassium Chloride Carbon Dioxide Anion Gap BUN Creatinine Estim Creat Clear Calc Est GFR (MDRD) Af Amer Est GFR (MDRD) Non-Af BUN/Creatinine Ratio Glucose Calcium Phosphorus 2.0 L Magnesium 2.0 Total Bilirubin AST ALT Alkaline Phosphatase Total Protein Albumin Globulin Albumin/Globulin Ratio Lipase Serum , Qual NEGATIVE Ethyl Alcohol 198.0 Discharge Plan Triage Chief Complaint: Substance Abuse ED Provider: Guido Pyle Dx/Rx/DC Orders Clinical Impression: Alcohol withdrawal, Alcohol abuse, Desire for detoxification Prescriptions: No Action albuterol 90 mcg/actuation Aerosol 90 mcg INHALATION Q4H PRN PRN (Reason: Shortness Of Breath Or Wheezing) Dulera 100-5 mcg/actuation Hfa Aerosol Inhaler 2 puff INHALATION Q12H PRN (Reason: sob) fluoxetine [Prozac] 40 mg Capsule 40 mg PO DAILY trazodone 50 mg Tablet 50 mg PO QHS buspirone [BuSpar] 10 mg Tablet 10 mg PO BID aripiprazole [Abilify] 5 mg Tablet 2.5 mg PO QHS topiramate [Topamax] 50 mg Tablet 50 mg PO BID Vivitrol 380 mg Suspension,Extended Rel Recon 380 mg IM QMONTH Spiriva Respimat 1.25 mcg/actuation Mist 2 puff INHALATION DAILY Primary Care Provider: Care Physician,No Primary Referrals: [facility] Doctor,Out of [Non-Staff] - Disposition Disposition: Acute Care Hospital
[2022-07-04 18:15] VITALS: BP 122/75; PULSE 119; RESP 20; O2SAT 99
[2022-07-04] MEDS: Ondansetron 4 MG/2 ML Vial IV (18:37)
[2022-07-04] MEDS: 0.9% Normal Saline 1,000 ML 1000 ML IV (18:38)
[2022-07-04 18:40] LABS: Absolute Lymphocyte Count 1.13 X10^3/uL (0.83-4.51); Absolute Neutrophil Count 9.9 X10^3/uL (2.0-7.7); Basophil# 0.06 X10^3/uL; Basophil% 0.5 % (0-1); Eosinophil# 0.12 X10^3/uL; Hematocrit 36.8 % (37-47); Lymphocyte # 1.13 X10^3/ul (0.83-4.51); Lymphocyte % 9.5 % (19-41); Mean Corp Hgb Conc 32.6 g/dL (32-36); Mean Platelet Vol. 10.2 fl (6.2-12.0); Monocyte# 0.68 X10^3/uL; Monocyte% 5.7 % (0-10); NRBC Flagged by Analyzer 0 % (0-5); Neutrophil # 9.89 X10^3/uL (2.7-7.7); Neutrophil % 82.8 % (47-70); Platelet Count 242 K/mm3 (150-450); RBC Distribution Width CV 12.6 % (11.6-14.6); RBC Distribution Width SD 42.3 fl (35.1-43.9); White Blood Count 11.9 K/mm3 (4.4-11.0)
[2022-07-04 18:48] LABS: Prothrombin Time (Protime)PT. 12.7 SECONDS (11.7-14.9)
[2022-07-04 19:02] LABS: Internal QC Validated? YES +Cl - CLEAR BKGD; Pregnancy, Serum, hCG Quali. NEGATIVE Negative
[2022-07-04 19:07] LABS: AST(SGOT) 24 U/L (15-37); Alanine Aminotransfer ALT/SGPT 25 U/L (13-56); Albumin, Serum 3.6 g/dL (3.2-5.0); Alkaline Phosphatase 83 U/L (45-117); Anion Gap 10 (5-15); BUN 12 mg/dL (7-18); BUN/Creat Ratio 15.9 RATIO (10-20); Calcium,Total 8.5 mg/dL (8.5-10.1); Chloride 109 mmol/L (98-107); Creatinine, Serum 0.76 mg/dL (0.55-1.02); EST Glomerular Filtration Rate 91 mL/min (>60); Est Glom Filt Rate - Afr Amer 110 mL/min (>60); Globulin 3.5 g/dL (2.2-4.2); Glucose 87 mg/dL (74-106); Lipase 235 U/L (73-393); Protein, Total 7.1 g/dL (6.4-8.2); Sodium Level 142 mmol/L (136-145)
--- NOTE | 2022-07-04 19:35 | HP.PCM.HOS_ITS ---
HPI - General General Date of Admission: 07/04/22 Date of Service: 07/04/22 Chief Complaint: EtOH Abuse, requested detoxification HPI Narrative The patient is a 37 y/o F w/ PMHx: Anxiety and Depression, Allergic rhinitis, Asthma, GERD, Hx Migraines, EtOH abuse (recently daily intake 400 mL fireball whiskey and 750 mL of vodka, most recently prior to ED presentation) who presents to the [facility] ED on 07/04/22 w/ noted onset EtOH withdrawal, onset starting 1 to 2 hours prior to ED presentation following last EtOH intake also just prior to presentation but she had been decreasing her intake on day of presentation with onset of nausea and mild tremors primarily. Patient interested in attaining sober status. She notes that she had been sober for approximately 1 month but started drinking again secondary to significant difficulties managing her anxiety and depression. In the ED she has significantly flat affect and notes that she is continue to follow with therapy. She notes that her and children at home but currently the grandparents are taking care of the children as her works second shift. Her does not abuse drugs or alcohol. Work-up in the ED included T97.9, heart rate initially 136, BP 121/78, respiratory rate 16, 95% on room air, CBC with WC 11.9, hemoglobin 12, platelet 242 with left shift, unremarkable coags, CMP with potassium 3.0, chloride 109 otherwise not marked appearing, serum testing negative, lipase 235, ethyl alcohol 198. In the ED patient ministered Zofran 4 mg IV x1 as well as normal saline 1 L bolus. [facility] Medical History Alcohol abuse Anxiety Asthma Cholecystectomy planned Depression Environmental allergies GERD (gastroesophageal reflux disease) Migraines Home Medications albuterol 90 mcg/actuation aerosol inhaler 90 mcg inhalation Q4H PRN PRN Shortness Of Breath Or Wheezing 01/15/22 [History Last Taken Unknown] mometasone-formoterol HFA 100 mcg-5 mcg/actuation aerosol inhaler (Dulera) 2 puff inhalation Q12H PRN sob 01/15/22 [History Last Taken 01/14/22] aripiprazole 5 mg tablet (Abilify) 2.5 mg PO QHS 07/04/22 [History Last Taken Unknown] buspirone 10 mg tablet 10 mg PO BID 07/04/22 [History Last Taken Unknown] fluoxetine 40 mg capsule (Prozac) 40 mg PO DAILY 07/04/22 [History Last Taken U nknown] naltrexone microspheres 380 mg intramuscular suspension,extended release (Vivitrol) 380 mg IM QMONTH 07/04/22 [History Last Taken Unknown] tiotropium bromide 1.25 mcg/actuation mist for inhalation (Spiriva Respimat) 2 puff inhalation DAILY 07/04/22 [History Last Taken Unknown] topiramate 50 mg tablet (Topamax) 50 mg PO BID 07/04/22 [History Last Taken Unknown] trazodone 50 mg tablet 50 mg PO QHS 07/04/22 [History Last Taken Unknown] Allergy/AdvReac Type Severity Reaction Status Date / Time adhesive tape AdvReac Rash Verified 07/04/22 16:21 Family History Mother Cancer History of Breast CA. Father Hypertension Surgical History H/O section H/O eye surgery S/P cholecystectomy Social History household members: spouse and family Smoking Status: Never smoker alcohol intake: current alcohol intake frequency: 3 or more drinks per day details: Daily 200-400 mL fireball, 1/2, 750 ml bottle 42 proof vodka daily. substance use type: does not use ROS ROS Narrative Admission Review of Systems: CONSTITUTIONAL: No weight loss, fever, chills, + weakness or fatigue. HEENT: Eyes: No visual loss, blurred vision, double vision or yellow sclerae. Ears, Nose, Throat: No hearing loss, sneezing, congestion, runny nose or sore throat. SKIN: No rash or itching, lesions, wounds. CARDIOVASCULAR: No chest pain, chest pressure or chest discomfort, palpitations, edema, orthopnea, syncopal events. RESPIRATORY: No shortness of breath, cough or sputum, wheezing, hemoptysis. GASTROINTESTINAL: + anorexia, nausea without vomiting, No diarrhea, abdominal pain, melena, BRBPR. GENITOURINARY: No dysuria, frequency, urgency or retention. NEUROLOGICAL: + Chronic headache/migraines, tremors, No dizziness, syncope, paralysis, ataxia, numbness or tingling in the extremities, focal weakness, change in bowel or bladder control, seizure. MUSCULOSKELETAL: No muscle, back pain, joint pain or stiffness. HEMATOLOGIC: + anemia, bleeding or bruising. LYMPHATICS: No enlarged nodes. No history of splenectomy. PSYCHIATRIC: + history of depression or anxiety. ENDOCRINOLOGIC: No reports of sweating, cold or heat intolerance. No polyuria or polydipsia. ALLERGIES: No history of asthma, rhinitis. Vital Signs Vital Signs Vital Signs: 07/04/22 16:21 07/04/22 18:15 Temperature 97.9 F Temperature Source Temporal Pulse Rate 136 H 119 H Respiratory Rate 16 20 H Blood Pressure 121/78 H 122/75 H Blood Pressure Mean 92 90 Pulse Ox 95 99 Oxygen Delivery Method Room Air Room Air Weight Weight: 150 lb 5.684 oz Body Mass Index (BMI) 27.5 Physical Exam Narrative Physical Examination: General: Awake, alert, oriented x 3 and cooperative, seated upright in the ED bed, significantly flat affect, ongoing tachycardia, mild tremors noted. Skin: Normal color, normal turgor, no icterus, no cyanosis. HEENT: AT/NC, EOMI, PERRLA, dry MM, no carotid bruits or JVD noted. Lungs: Mildly diminished, decreased bases, no rales, ronchi or wheezing. Heart: Tachycardic with regular rhythm; no gallop, rub audible. Abdomen: Soft, NTTP, ND, hyperactive BS, no HSM. Extremities: No cyanosis, clubbing, or edema. Neurological: Patient awake, alert, oriented as noted, cognitive function appears baseline intact however do think patient is significantly affected by her depression; pupils equally reactive to light and accommodation, cranial nerves grossly normal, moving all 4 extremities, no focal deficits, strength mildly to moderately global decrease secondary to acute presentation with onset alcohol withdrawal symptoms, mild tremors evident. Psychiatric: Affect appears significantly flat, has underlying depression and anxiety and suspect this is uncontrolled. Results Lab / Micro Data Result Diagrams: 07/04/22 18:30 07/04/22 18:30 Labs: Laboratory Results - last 24 hr 07/04/22 18:30: WBC 11.9 H, RBC 4.00 L, Hgb 12.0, Hct 36.8 L, MCV 92.0, MCH 30.0, MCHC 32.6, RDW Std Deviation 42.3, RDW Coeff of Jordan 12.6, Plt Count 242, MPV 10.2, Immature Gran % (Auto) 0.500, Neut % (Auto) 82.8 H, Lymph % (Auto) 9.5 L, Wilkes % (Auto) 5.7, Eos % (Auto) 1.0, Baso % (Auto) 0.5, Absolute Neuts (auto) 9.9 H, Absolute Lymphs (auto) 1.13, Nucleated RBC % 0 07/04/22 18:30: PT 12.7, INR 1.0 07/04/22 18:30: Sodium 142, Potassium 3.0 L, Chloride 109 H, Carbon Dioxide 23.0, Anion Gap 10, BUN 12, Creatinine 0.76, Estim Creat Clear Calc 78.60, Est GFR (MDRD) Af Amer 110, Est GFR (MDRD) Non-Af 91, BUN/Creatinine Ratio 15.9, Glucose 87, Calcium 8.5, Total Bilirubin 0.50, AST 24, ALT 25, Alkaline Phosphatase 83, Total Protein 7.1, Albumin 3.6, Globulin 3.5, Albumin/Globulin Ratio 1.0, Lipase 235 07/04/22 18:30: Ethyl Alcohol 198.0 07/04/22 18:30: Serum , Qual NEGATIVE Assessment & Plan Assessment/Plan (1) Alcohol withdrawal: QUALIFIERS: Complication of substance-induced condition: uncomplicated Qualified Code(s): F10.230 - Alcohol dependence with withdrawal, uncomplicated PLAN: Plan The patient is a 37 y/o F w/ PMHx: Anxiety and Depression, Allergic rhinitis, Asthma, GERD, Hx Migraines, EtOH abuse (recently daily intake 400 mL fireball whiskey and 750 mL of vodka, most recently prior to ED presentation) who presents to the [facility] ED on 07/04/22 w/ noted onset EtOH withdrawal, onset starting 1 to 2 hours prior to ED presentation following last EtOH intake also just prior to presentation but she had been decreasing her intake on day of presentation with onset of nausea and mild tremors primarily. #1. Acute EtOH Withdrawal: Will admit to medical surgical floor, routine labs obtained in the ED upon presentation and notable for mild. Given interest in sobriety, will initiate and continue on protocol with taper course of Phe nobarbital, scheduled gabapentin for seizure prophylaxis, as needed Catapres, Bentyl, Vistaril, IV fluids, IV antiemetics, Tylenol as needed for pain. Will consult Case management for assistance for transition to next level of rehabilitation care. Mag, phos pending. Maintain on CIWA protocol concurrently. #2. Hypokalemia: Admission K+ 3.0, magnesium level requested is, supplementation given, repeat level in AM. #3. Anxiety and depression: We will continue patient home fluoxetine, Abilify, BuSpar, nightly trazodone regimen and continue strongly aggressive outpatient therapy follow-up as likely contributing to her ongoing alcohol abuse. 180/case management consulted as noted. #4. Chronic asthma with allergic rhinitis: We will continue patient home Spiriva inhaler and have as needed albuterol nebulizer treatments per RT as needed. #5. History chronic migraines: We will continue patient home topiramate regimen. #6 GERD: If necessary may add famotidine and dyspepsia medication. #7. DVT prophylaxis: Low risk, encourage ambulation. Charges/Coding Visit Charges Inpatient E&M: 20395 Init Hosp L3
[2022-07-04 20:00] VITALS: PULSE 101; RESP 18
--- NOTE | 2022-07-04 20:54 | CM.ED ---
Social Work Consult: Substance Abuse Referral source: Reason for ED visit, self referral. Telephone call to treatment navigator, Brisa. This social media executive updated Brisa on patient admission to [facility]. This social media executive unable to see patient prior to patient admission to acute care unit. Paola GIRALDO, TYREE-S
[2022-07-04 21:52] VITALS: BMI 26.8
[2022-07-04 22:04] VITALS: BP 101/68; PULSE 88; RESP 18; TEMP 36.8; O2SAT 98
[2022-07-04] MEDS: Potassium Chloride Oral Tablet 20 MEQ 40 MEQ PO (22:45)
[2022-07-04] MEDS: busPIRone 5 MG Tablet 10 MG PO (22:45)
[2022-07-04] MEDS: Phenobarbital 32.4 MG Tablet 64.8 MG PO (22:45)
[2022-07-04] MEDS: Topiramate 50 MG Tablet PO (22:45)
[2022-07-04] MEDS: Lactated Ringers 1,000 ML 125 ML IV (22:48)
[2022-07-04] MEDS: Gabapentin 300 MG Capsule PO (22:55)
[2022-07-04] MEDS: Ondansetron 8 MG Tablet PO (22:55)
[2022-07-05] MEDS: hydrOXYzine PAM 25 MG Capsule 50 MG PO ×2 (02:38→22:09)
[2022-07-05] MEDS: Phenobarbital 32.4 MG Tablet 64.8 MG PO ×6 (02:38→22:10)
[2022-07-05 02:44] VITALS: BP 105/71; PULSE 89; RESP 16; TEMP 36.6; O2SAT 97
[2022-07-05] MEDS: Ibuprofen 600 MG Tablet PO ×2 (05:59→16:10)
[2022-07-05 06:03] VITALS: BP 107/74; PULSE 86; RESP 18; TEMP 36.6; O2SAT 97
[2022-07-05 06:55] VITALS: PULSE 88; RESP 16
[2022-07-05] MEDS: Ipratropium 0.5 MG/2.5 ML SOLUTION INHALATION (06:55)
[2022-07-05] MEDS: Folic Acid 1 MG Tablet PO (07:49)
[2022-07-05] MEDS: Thiamine Hydrochloride 100 MG Tablet PO (07:49)
[2022-07-05] MEDS: Ondansetron 8 MG Tablet PO ×2 (08:02→16:20)
[2022-07-05] MEDS: Acetaminophen 325 MG Tablet 650 MG PO ×2 (08:02→22:10)
[2022-07-05] MEDS: Gabapentin 300 MG Capsule PO ×2 (08:02→16:02)
[2022-07-05 10:00] VITALS: BP 99/65; PULSE 78; RESP 17; TEMP 36.9; O2SAT 98
[2022-07-05] MEDS: Fluoxetine HCl 40 MG CAPSULE PO (11:26)
[2022-07-05] MEDS: busPIRone 5 MG Tablet 10 MG PO ×2 (11:26→22:09)
[2022-07-05] MEDS: Topiramate 50 MG Tablet PO ×2 (11:27→22:09)
[2022-07-05] MEDS: ARIPiprazole 5 MG Tablet 2.5 MG PO (11:27)
[2022-07-05 14:00] VITALS: BP 105/73; PULSE 79; RESP 18; TEMP 36.7; O2SAT 99
[2022-07-05] MEDS: 0.9% Saline Lock 10 ML Syringe IV (16:16)
--- NOTE | 2022-07-05 18:44 | PCM.PN.HOSP ---
Subjective Subjective Patient was seen and examined today, I talked with addiction child protective services social worker today about her discharge planning, according to addiction child protective services social worker, patient wants to follow-up in an outpatient program after discharge from the hospital. Patient confirms to me during my visit today. Patient has no outward signs of alcohol withdrawal at this time, she does not complain of any muscle pain, nausea, or vomiting. Objective Data Objective Data Vital Signs: Vital Signs Temp Pulse Resp BP Pulse Ox O2 Del Method 98.1 F 79 18 105/73 99 Room Air 07/05/22 14:00 07/05/22 14:00 07/05/22 14:00 07/05/22 14:00 07/05/22 14:00 07/05/22 14:00 Oxygen Delivery Method Room Air Weight: 66.5 kg Body Mass Index (BMI) 26.8 Intake & Output: Intake and Output for Last 24 Hours 07/03/22 07/04/22 07/05/22 23:59 23:59 23:59 Intake Total 1000 / 1000 2730 / 2730 Balance 1000 / 1000 2730 / 2730 Lab / Micro Data Result Diagrams: 07/04/22 18:30 07/04/22 18:30 Labs: Laboratory Results - last 24 hr 07/04/22 18:30: PT 12.7, INR 1.0 07/04/22 18:30: Sodium 142, Potassium 3.0 L, Chloride 109 H, Carbon Dioxide 23.0, Anion Gap 10, BUN 12, Creatinine 0.76, Estim Creat Clear Calc 78.60, Est GFR (MDRD) Af Amer 110, Est GFR (MDRD) Non-Af 91, BUN/Creatinine Ratio 15.9, Glucose 87, Calcium 8.5, Total Bilirubin 0.50, AST 24, ALT 25, Alkaline Phosphatase 83, Total Protein 7.1, Albumin 3.6, Globulin 3.5, Albumin/Globulin Ratio 1.0, Lipase 235 07/04/22 18:30: Ethyl Alcohol 198.0 07/04/22 18:30: Serum , Qual NEGATIVE 07/04/22 18:30: Phosphorus 2.0 L, Magnesium 2.0 Physical Exam Const alert, oriented x3, no apparent distress and healthy appearing General Appearance: cooperative, well kempt and well developed Orientation / Consciousness: awake, oriented to person, oriented to place and oriented to time HEENT normocephalic and moist oral mucous membranes Eyes PERRL, EOMs intact bilaterally and conjunctivae normal Neck supple, no JVD, thyroid normal and no carotid bruits General: trachea midline Resp normal respiratory effort and clear to auscultation bilaterally Auscultation: Negative for rales, rhonchi or wheezes Cardio regular rate, regular rhythm, no murmurs, no rub and no gallops GI normal to inspection, nondistended, normoactive bowel sounds, soft to palpation, non-tender and non-distended Extremity no clubbing, cyanosis or edema Skin no rashes or lesions noted General Skin Exam: no breakdown Neuro oriented x3, CN's II-XII intact bilaterally, no focal motor deficits and no sensory deficits noted Sensorium / Orientation: awake and alert Speech: speech normal Psych Psych Narrative: Affect is flat Assessment & Plan Assessment/Plan (1) Alcohol withdrawal: QUALIFIERS: Complication of substance-induced condition: uncomplicated Qualified Code(s): F10.230 - Alcohol dependence with withdrawal, uncomplicated PLAN: Plan 1. Acute alcohol withdrawal-continue present medications, patient has had no untoward effects since her admission to the hospital #2 chronic alcoholism-patient wants to follow-up with an outpatient program after she is discharged from the hospital here #3 chronic depression-patient will remain on her current medications #4 chronic asthma-this is stable at this time, patient will resume her home medications after discharge #5 chronic migraines-patient is on Topamax as an outpatient, she is currently receiving it in the hospital here, she will resume this after discharge from hospital Charges/Coding Visit Charges Inpatient E&M: 75583 Subs Hosp L2
[2022-07-05 21:55] VITALS: BP 102/58; PULSE 89; RESP 16; TEMP 36.8; O2SAT 100
[2022-07-06] VITALS (8 sets, daily range): BP systolic 90–102; BP diastolic 58–66; PULSE 70–80; RESP 16–18; TEMP 36.3–36.9; O2SAT 96–99
[2022-07-06] MEDS: traZODone 100 MG Tablet PO (00:20)
[2022-07-06] MEDS: Ibuprofen 600 MG Tablet PO ×3 (00:20→20:42)
[2022-07-06] MEDS: Gabapentin 300 MG Capsule PO ×2 (00:20→09:43)
[2022-07-06] MEDS: Ondansetron 8 MG Tablet PO ×3 (00:20→18:55)
[2022-07-06] MEDS: Acetaminophen 325 MG Tablet 650 MG PO ×2 (02:30→16:23)
[2022-07-06] MEDS: Phenobarbital 32.4 MG Tablet 64.8 MG PO ×2 (02:30→06:14)
[2022-07-06] MEDS: hydrOXYzine PAM 25 MG Capsule 50 MG PO (02:30)
[2022-07-06] MEDS: 0.9% Saline Lock 10 ML Syringe IV (06:17)
[2022-07-06] MEDS: Fluoxetine HCl 40 MG CAPSULE PO (09:08)
[2022-07-06] MEDS: Topiramate 50 MG Tablet PO ×2 (09:08→20:44)
[2022-07-06] MEDS: busPIRone 5 MG Tablet 10 MG PO ×2 (09:12→20:43)
[2022-07-06] MEDS: ARIPiprazole 5 MG Tablet 2.5 MG PO (09:13)
[2022-07-06] MEDS: Folic Acid 1 MG Tablet PO (09:13)
[2022-07-06] MEDS: Thiamine Hydrochloride 100 MG Tablet PO (09:13)
--- NOTE | 2022-07-06 11:49 | PN.HOSP_ITS ---
Subjective Subjective Patient was seen and examined today, she appears comfortable and does not appear anxious or nervous. I talked her about decreasing amount of phenobarbital that she was receiving here so that we could make plans for possibly getting her discharged tomorrow, she is not against this, I have reduced her phenobarb dosa ge. Objective Data Objective Data Vital Signs: Vital Signs Temp Pulse Resp BP Pulse Ox O2 Del Method 98.4 F 74 18 90/58 L 97 Room Air 07/06/22 06:08 07/06/22 06:08 07/06/22 06:08 07/06/22 06:08 07/06/22 07:10 07/06/22 07:10 Oxygen Delivery Method Room Air Weight: 66.5 kg Body Mass Index (BMI) 26.8 Intake & Output: Intake and Output for Last 24 Hours 07/04/22 07/05/22 07/06/22 23:59 23:59 23:59 Intake Total 1000 / 1000 2730 / 2730 Balance 1000 / 1000 2730 / 2730 Lab / Micro Data Result Diagrams: 07/04/22 18:30 07/04/22 18:30 Physical Exam Const alert, oriented x3, no apparent distress and healthy appearing General Appearance: cooperative, well kempt and well developed Orientation / Consciousness: awake, oriented to person, oriented to place and oriented to time HEENT normocephalic and moist oral mucous membranes Eyes PERRL, EOMs intact bilaterally and conjunctivae normal Neck supple, no JVD, thyroid normal and no carotid bruits General: trachea midline Resp normal respiratory effort and clear to auscultation bilaterally Auscultation: Negative for rales, rhonchi or wheezes Cardio regular rate, regular rhythm, no murmurs, no rub and no gallops GI normal to inspection, nondistended, normoactive bowel sounds, soft to palpation, non-tender and non-distended Extremity no clubbing, cyanosis or edema Skin no rashes or lesions noted General Skin Exam: no breakdown Neuro oriented x3, CN's II-XII intact bilaterally, no focal motor deficits and no sen suman deficits noted Sensorium / Orientation: awake and alert Speech: speech normal Psych affect normal Assessment & Plan Assessment/Plan (1) Alcohol withdrawal: QUALIFIERS: Complication of substance-induced condition: uncomplicated Qualified Code(s): F10.230 - Alcohol dependence with withdrawal, uncomplicated PLAN: Plan 1. Acute alcohol withdrawal-again I have elected to decrease the patient's phenobarb dosage, she will be observed for increase signs of withdrawal. If patient remains stable tomorrow, I will discharge her home with a small amount of phenobarbital she follows up as an outpatient with detox services. #2 chronic alcoholism-patient wants to follow-up with an outpatient program after she is discharged from the hospital here #3 chronic depression-patient will remain on her current medications #4 chronic asthma-this is stable at this time, patient will resume her home medications after discharge #5 chronic migraines-patient is on Topamax as an outpatient, she is currently receiving it in the hospital here, she will resume this after discharge from hospital Charges/Coding Visit Charges Inpatient E&M: 71057 Subs Hosp L2
[2022-07-06] MEDS: Phenobarbital 32.4 MG Tablet PO ×2 (15:49→23:06)
[2022-07-06] MEDS: Loratadine 10 MG Tablet PO (15:49)
--- NOTE | 2022-07-06 17:02 | ADDICTION ---
Emilee reported all ASAM, AUDIT, DUDIT, MSE, was completed 07/05/22. TW met with pt to complete d/c plan. Pt has f/u appt with [facility] on Saturday07/10/22 at 6PM. Pt reports being from [facility] and has support systems and will f/u with AA meetings as well. No transportation needs noted.
[2022-07-06] MEDS: Ipratropium 0.5 MG/2.5 ML SOLUTION INHALATION (18:37)
[2022-07-07 03:20] VITALS: BP 91/58; PULSE 74; RESP 18; TEMP 36.8; O2SAT 97
[2022-07-07] MEDS: Phenobarbital 32.4 MG Tablet PO (06:17)
[2022-07-07] MEDS: Ipratropium 0.5 MG/2.5 ML SOLUTION INHALATION (07:21)
[2022-07-07 07:23] VITALS: PULSE 86; RESP 16; O2SAT 97
[2022-07-07] MEDS: ARIPiprazole 5 MG Tablet 2.5 MG PO (07:54)
[2022-07-07] MEDS: busPIRone 5 MG Tablet 10 MG PO (07:55)
[2022-07-07] MEDS: Thiamine Hydrochloride 100 MG Tablet PO (07:55)
[2022-07-07] MEDS: Topiramate 50 MG Tablet PO (07:55)
[2022-07-07] MEDS: Fluoxetine HCl 40 MG CAPSULE PO (07:55)
[2022-07-07] MEDS: Folic Acid 1 MG Tablet PO (07:55)
[2022-07-07] MEDS: Loratadine 10 MG Tablet PO (07:58)
[2022-07-07 08:03] VITALS: BP 88/55; PULSE 84; RESP 16; TEMP 36.6; O2SAT 98
[2022-07-07 09:56] VITALS: BP 99/63; PULSE 91; RESP 16; TEMP 37.1; O2SAT 98
--- NOTE | 2022-07-07 09:56 | DCINST_ITS ---
Discharge Instructions Diet Discharge Diet: No restrictions Activity Discharge Activity: Return to Normal Activity Weight Bearing Status: Full weight bearing Follow Up Care Test Results: Test results from this visit will be discussed in further detail at your follow- up appointment, if applicable. Discharge Plan Admission Admit Date/Time: 07/04/22 19:36 Primary Reason for Your Visit: alcohol detox Attending Provider: Jai Karimi Primary Care Provider: Care Physician,No Primary Consulting Providers: Leia Cox Instructions Additional Instructions / Restrictions: If you relapse and go back to drinking alcohol, do no take phenobarbital Discharge Orders/Prescriptions Prescriptions: New phenobarbital 32.4 mg tablet 32.4 mg PO BID Qty: 10 0RF Rx Instructions: one two to three times a day for the next 3 days Continued albuterol 90 mcg/actuation Aerosol 90 mcg INHALATION Q4H PRN PRN (Reason: Shortness Of Breath Or Wheezing) Dulera 100-5 mcg/actuation Hfa Aerosol Inhaler 2 puff INHALATION Q12H PRN (Reason: sob) fluoxetine [Prozac] 40 mg Capsule 40 mg PO DAILY trazodone 50 mg Tablet 50 mg PO QHS buspirone 10 mg Tablet 10 mg PO BID aripiprazole [Abilify] 5 mg Tablet 2.5 mg PO QHS topiramate [Topamax] 50 mg Tablet 50 mg PO BID Vivitrol 380 mg Suspension,Extended Rel Recon 380 mg IM QMONTH Rx Instructions: had a few weeks ago, unsure of date Spiriva Respimat 1.25 mcg/actuation Mist 2 puff INHALATION DAILY Referrals / Follow Up: Care Physician,No Primary [Primary Care Provider] - [facility] Doctor,Out of [Non-Staff] - Disposition Disposition (needs filled in before D/C Order can be placed): Home, Self Care
--- NOTE | 2022-07-07 11:51 | DS.PCM_ITS ---
Providers Date of Admission: 07/04/22 Date of Discharge: 07/07/22 Primary Care Physician: No Primary Care Phys Reason For Visit: ETOH WITHDRAWAL Diagnosis Discharge Diagnosis (1) Alcohol withdrawal: Status: Acute Code(s): F10.239 - Alcohol dependence with withdrawal, unspecified Qualifiers: Complication of substance-induced condition: uncomplicated Qualified Code(s): F10.230 - Alcohol dependence with withdrawal, uncomplicated Plan 1. Acute alcohol withdrawal-again I have elected to decrease the patient's phenobarb dosage, she will be observed for increase signs of withdrawal. If baljit zelaya remains stable tomorrow, I will discharge her home with a small amount of phenobarbital she follows up as an outpatient with detox services. #2 chronic alcoholism-patient wants to follow-up with an outpatient program after she is discharged from the hospital here #3 chronic depression-patient will remain on her current medications #4 chronic asthma-this is stable at this time, patient will resume her home medications after discharge #5 chronic migraines-patient is on Topamax as an outpatient, she is currently receiving it in the hospital here, she will resume this after discharge from hospital #6 hypokalemia Medications at Discharge Home Medications albuterol 90 mcg/actuation aerosol inhaler 90 mcg inhalation Q4H PRN PRN Shortness Of Breath Or Wheezing 01/15/22 mometasone-formoterol HFA 100 mcg-5 mcg/actuation aerosol inhaler (Dulera) 2 puff inhalation Q12H PRN sob 01/15/22 aripiprazole 5 mg tablet (Abilify) 2.5 mg PO QHS depression 07/04/22 buspirone 10 mg tablet 10 mg PO BID anxiety 07/04/22 fluoxetine 40 mg capsule (Prozac) 40 mg PO DAILY depression 07/04/22 naltrexone microspheres 380 mg intramuscular suspension,extended release (Vivitrol) 380 mg IM QMONTH cravings 07/04/22 tiotropium bromide 1.25 mcg/actuation mist for inhalation (Spiriva Respimat) 2 puff inhalation DAILY asthma 07/04/22 topiramate 50 mg tablet (Topamax) 50 mg PO BID migraines 07/04/22 trazodone 50 mg tablet 50 mg PO QHS sleep 07/04/22 phenobarbital 32.4 mg tablet 32.4 mg PO BID #10 tabs 07/07/22 Hospital Course Operations None Procedures None Summary of Care Provided Minutes Spent on Discharge: 31 Hospital Course: This 37-year-old white female was seen in the emergency room at [facility] requesting services for alcohol detox. Patient's blood alcohol level was 198 at the time of admission, patient was admitted to [place] [address], orders were entered using the alcohol detox order set, patient was seen by addiction social services counselor-patient declined inpatient placement at the time of discharge from the hospital here and instead agreed to an outpatient detox program after she was discharged from the hospital. There were no major proble ms during her hospitalization, there is no evidence of any DTs. On 07/07/2022, patient was seen and examined: On examination she appeared in good health and spirits, she does not appear to be in any distress. Vital signs as documented. Skin warm and dry and without overt rashes. Neck without JVD, t hyroid appears normal, trachea is midline, neck is supple. Lungs clear, normal air movement was noted. Heart exam notable for regular rhythm, normal sounds and absence of murmurs, rubs or gallops. Abdomen unremarkable and without evidence of organomegaly, masses, or abdominal aortic enlargement, bowel sounds are present in all 4 quadrants, no abdominal tenderness was noted. Extremities nonedematous, no cyanosis was noted, no clubbing was noted. Neuro: Cranial nerves II through XII are grossly intact, no focal motor deficits were noted, sensation to light touch and pinprick is intact, motor exam 5/5 throughout. Psych: Patient is alert and oriented x3, she does not appear anxious or depresse d, she does not appear agitated. On 07/07/2022, patient was seen and examined and felt to be stable for discharge home. Weight / BMI Weight Weight: 66.5 kg Body Mass Index (BMI) 26.8 ABG / Lab / Microbiology Data Result Diagrams: 07/04/22 18:30 07/04/22 18:30 D/C Instructions Discharge Diet: No restrictions Weight Bearing Status: Full weight bearing Meaningful Use Info Meaningful Use Diagnoses (Choose all that apply): None applicable Discharge Plan Admission Admit Date/Time: 07/04/22 19:36 Primary Reason for Your Visit: alcohol detox Attending Provider: Jai Karimi Primary Care Provider: Care Physician,No Primary Consulting Providers: Leia Cox Instructions Additional Instructions / Restrictions: If you relapse and go back to drinking alcohol, do no take phenobarbital Discharge Orders/Prescriptions Prescriptions: New phenobarbital 32.4 mg tablet 32.4 mg PO BID Qty: 10 0RF Rx Instructions: one two to three times a day for the next 3 days Continued albuterol 90 mcg/actuation Aerosol 90 mcg INHALATION Q4H PRN PRN (Reason: Shortness Of Breath Or Wheezing) Dulera 100-5 mcg/actuation Hfa Aerosol Inhaler 2 puff INHALATION Q12H PRN (Reason: sob) fluoxetine [Prozac] 40 mg Capsule 40 mg PO DAILY trazodone 50 mg Tablet 50 mg PO QHS buspirone 10 mg Tablet 10 mg PO BID aripiprazole [Abilify] 5 mg Tablet 2.5 mg PO QHS topiramate [Topamax] 50 mg Tablet 50 mg PO BID Vivitrol 380 mg Suspension,Extended Rel Recon 380 mg IM QMONTH Rx Instructions: had a few weeks ago, unsure of date Spiriva Respimat 1.25 mcg/actuation Mist 2 puff INHALATION DAILY Referrals / Follow Up: Care Physician,No Primary [Primary Care Provider] - [facility] Doctor,Out of [Non-Staff] - Disposition Disposition (needs filled in before D/C Order can be placed): Home, Self Care Charges/Coding Visit Charges Inpatient E&M: 13388 Disch Hosp
== END 2022-07-07 13:14 | disposition home or self-care (01) | DRG 897 ==
LOC: ED 20:08 → MS3 20:15
PROVIDERS: Admitting Provider Family Medicine; Emergency Provider Emergency Medicine; Visit Provider Internal Medicine
DX: F10.230 Alcohol dependence with withdrawal, uncomplicated (principal); E87.6 Hypokalemia; J44.9 Chronic obstructive pulmonary disease, unspecified; J45.909 Unspecified asthma, uncomplicated; K21.9 Gastro-esophageal reflux disease without esophagitis; G43.709 Chronic migraine without aura, not intractable, without status migrainosus; F41.9 Anxiety disorder, unspecified; F32.A Depression, unspecified; Y90.6 Blood alcohol level of 120-199 mg/100 ml
CPT/HCPCS: 80053; 82077; 83690; 83735; 84100; 84703; 85025; 85610; 93005; 94640; 97802; 99251; 99282; J7030; J7120; A4216; G0463; J2405

== ENCOUNTER 2024-08-31 23:15 | Inpatient (IN) | payer OTHER, SELFPAY ==
[2024-08-31 23:17] VITALS: BP 133/84; PULSE 112; RESP 18; TEMP 36.3; O2SAT 97; BMI 37.6
[2024-09-01] VITALS (13 sets, daily range): BP systolic 104–140; BP diastolic 70–88; PULSE 76–90; RESP 12–18; TEMP 36.6–37; O2SAT 94–99; BMI 36.1
[2024-09-01] LABS: Amphetamine Urine VISTA NEGATIVE (<1000 ng/mL); Barbiturate Urine VISTA NEGATIVE (< 200 ng/mL); Benzodiazepine Urine VISTA NEGATIVE (< 200 ng/mL); Cocaine Urine VISTA NEGATIVE (< 300 ng/mL); Ecstacy Urine VISTA NEGATIVE (< 500 ng/mL); Methadone Urine VISTA NEGATIVE (< 300 ng/mL); PCP Urine VISTA NEGATIVE (< 25 ng/mL); THC Urine VISTA NEGATIVE (< 50 ng/mL); Vista UDS pH Range 7
[2024-09-01 00:21] LABS: Absolute Lymphocyte Count 1.93 X10^3/uL (0.83-4.51); Absolute Neutrophil Count 11.8 X10^3/uL (2.0-7.7); Basophil# 0.08 X10^3/uL; Basophil% 0.5 % (0-1); Eosinophil# 0.15 X10^3/uL; Hematocrit 35.8 % (37-47); Hemoglobin 11.4 g/dL (12.0-15.0); Lymphocyte # 1.93 X10^3/ul (0.83-4.51); Lymphocyte % 12.4 % (19-41); Mean Corp Hgb Conc 31.8 g/dL (32-36); Mean Corpuscular Hgb 26.1 pg (27.0-32.0); Mean Corpuscular Volume 81.9 fL (81-99); Monocyte# 1.35 X10^3/uL; Monocyte% 8.7 % (0-10); NRBC Flagged by Analyzer 0 % (0-5); Neutrophil % 75.8 % (47-70); Platelet Count 295 K/mm3 (150-450); RBC Distribution Width CV 16.9 % (11.6-14.6); Red Blood Count 4.37 M/mm3 (4.2-5.4); White Blood Count 15.6 K/mm3 (4.4-11.0)
--- NOTE | 2024-09-01 00:26 | EX.ED.SAOD ---
HPI History of Present Illness Chief Complaint: ETOH Intox Informant: patient and friend Onset/Context/Timing Onset: Weeks Context: Gradual Onset Timing: Continuous Current Severity: Moderate Maximum Severity: Moderate Associated Symptoms Associated Symptoms: Positive for vomiting* and diarrhea* Narrative Narrative: 39-year-old female history of asthma and alcohol abuse. Last detox was about 2 years ago in 2021. States she began binge drinking about 2 weeks ago and she will consume as much as 100 ounces of hard alcohol a day. Did drink alcohol today both vodka and fireball. States she has had some nausea, vomiting and diarrhea from withdrawal symptoms over the last couple weeks. Denies any hematemesis or melena. No other complaints. Prior similar symptoms: Yes Recent Illness/Hospitalization: No PFSH PFSH Medical History Former smoker Desire for detoxification Alcohol abuse Migraines GERD (gastroesophageal reflux disease) Environmental allergies Asthma Depression Anxiety Alcohol abuse Cholecystectomy planned Home Medications ?Medication ?Instructions ?Recorded ?Last Taken ?Type fluoxetine 40 mg capsule (Prozac) 40 mg PO DAILY depression 07/04/22 07/03/22 History albuterol sulfate 90 mcg/actuation 2 puff inhalation Q6H PRN PRN 09/01/24 Unknown History aerosol inhaler wheezing cariprazine 1.5 mg capsule 1.5 mg PO DAILY 09/01/24 Unknown History (Vraylar) disulfiram 250 mg tablet 250 mg PO DAILY 09/01/24 Unknown History fluticasone propionate 50 2 spray intranasal DAILY 09/01/24 Unknown History mcg/actuation nasal spray,suspension ipratropium 0.5 mg-albuterol 3 mg 3 ml inhalation Q6H PRN shortness 09/01/24 Unknown History (2.5 mg base)/3 mL nebulization of breath or wheezing soln ketorolac 10 mg tablet 10 mg PO Q6H PRN PRN pain 09/01/24 Unknown History memantine 10 mg tablet 20 mg PO DAILY 09/01/24 Unknown History metoclopramide HCl 10 mg tablet 10 mg PO 4X/DAY PRN PRN migraine 09/01/24 Unknown History metoprolol succinate 25 mg 25 mg PO DAILY 09/01/24 Unknown History tablet,extended release 24 hr mirtazapine 7.5 mg tablet 7.5 mg PO QHS 09/01/24 Unknown History omeprazole 40 mg capsule,delayed 40 mg PO DAILY 09/01/24 Unknown History release ubrogepant 100 mg tablet (Ubrelvy) 100 mg PO DAILY PRN migraine 09/01/24 Unknown History headache Allergy/AdvReac Type Severity Reaction Status Date / Time adhesive tape AdvReac Rash Verified 08/31/24 23:17 Family History Mother Cancer History of Breast CA. Father Hypertension Surgical History S/P cholecystectomy H/O section H/O eye surgery Social History household members: spouse and family Smoking Status: Former smoker alcohol intake: current alcohol intake frequency: 3 or more drinks per day details: Daily 200-400 mL fireball, 1/2, 750 ml bottle 42 proof vodka daily. substance use type: does not use ROS ROS ED ROS Narrative Nausea, vomiting diarrhea. Constitutional Constitutional ED: Denies chills or fever(s) Eyes Eyes: Denies blurry vision ENT ENT ED: Denies ear pain Cardiovascular Cardiovascular: Denies chest pain Respiratory/Chest Respiratory/Chest: Denies cough or dyspnea Gastrointestinal Gastrointestinal: Reports diarrhea, nausea and vomiting; Denies abdominal pain, constipation or melena Genitourinary Genitourinary ED: Denies dysuria Musculoskeletal Musculoskeletal: Denies arthralgias or back pain Integumentary Denies abscess Neurologic Neurologic: Denies headache(s) Psychiatric Psychiatric: Denies anxiety Endocrine Endocrinology: Denies cold intolerance Hematologic/Lymphatic Hematologic/Lymphatic: Denies easy bleeding or easy bruising Allergic/Immunologic Allergic/Immunologic ED: Denies mouth swelling, tongue swelling or urticaria EXAM Physical Exam Narrative Exam Narrative: Well-appearing 39-year-old female. Vital signs stable afebrile. H EENT exam unremarkable. Neck nontender. Lungs clear to auscultation bilaterally. Heart regular rhythm rate about 110 no murmur. Abdomen soft, nontender, nondistended normal bowel sounds without peritoneal signs. Moving all 4 extremities. Normal linseed cake trimmer strength. Normal dorsi plantarflexion. Nontender no deformity. Back nontender. Neurologically she is awake and alert no focal motor deficits. Answering questions and following commands. Possibly intoxicated. Const Vital Signs: 08/31/24 23:17 09/01/24 00:17 09/01/24 00:30 Temperature 97.4 F L 98.0 F Temperature Source Temporal Oral Pulse Rate 112 H 86 86 Respiratory Rate 18 16 16 Blood Pressure 133/84 H 135/72 H 135/72 H Blood Pressure Mean 100 93 93 Blood Pressure Source Monitor Blood Pressure Position Supine Blood Pressure Location Left Arm Pulse Ox 97 96 96 Oxygen Delivery Method Room Air Room Air Room Air 09/01/24 01:00 09/01/24 02:00 09/01/24 02:41 Temperature 98.6 F Temperature Source Pulse Rate 86 77 77 Respiratory Rate 16 18 16 Blood Pressure 104/70 108/73 108/73 Blood Pressure Mean 81 84 84 Blood Pressure Source Blood Pressure Position Blood Pressure Location Pulse Ox 95 96 96 Oxygen Delivery Method Room Air Room Air Positive well nourished and well developed; Negative for cachectic, contractures or unkempt General Appearance ED: well developed and NAD; Negative for unkempt, cachectic, contractures or pallor Nutritional Appearance: Negative for cachectic HEENT Reports moist mucous membranes atraumatic; Negative for trauma or tenderness Eyes PERRL and EOMs intact bilaterally General Eye ED: Negative for pale conjunctiva Neck no lymphadenopathy, supple and no JVD Thyroid: Negative for tender Lymph Lymphatic: no lymphadenopathy noted; Negative for lymphadenopathy Chest Wall inspection of chest normal and palpation of chest normal Resp normal respiratory effort and clear to auscultation bilaterally Cardio regular rhythm and no murmurs; Negative for regular rate Rate: tachycardic GI soft to palpation, non-tender, non-distended and no masses Inspection: Negative for abdominal distention Palpation: Negative for tender or guarding Back/Spine no CVA tenderness Extremity General Extremety ED: Negative for edema or tenderness General Extremity: Negative for edema Neuro oriented x3 and CN's II-XII intact bilaterally Sensorium / Orientation: alert, oriented to person, oriented to place and oriented to time Speech: speech normal Motor Exam: strength 5/5 throughout Psych mental status grossly normal and thought process normal Appearance: Negative for unkempt Skin General Skin Exam: Negative for jaundice or pallor Lesions: no lesions Rashes: no rashes MDM MDM MDM Narrative Medical decision making narrative: 39-year-old female history of alcohol abuse requesting detox. Exam benign. Screening labs for detox I will speak to the hospitalist about admission. Repeat exam patient is doing well at 3:36 AM. Hospitalist has evaluated the patient and she will be admitted for detox. Lab Data Attestation: I reviewed the patient's lab results. Lab results narrative: Urine tox screen negative. Alcohol levels 133. CBC shows a white count of 15.6. H&H 11.4 and 35. Platelets 295. Electrolytes show potassium 3.4. Gap 9. Normal BUN and creatinine. Glucose 91. Serum test negative. Labs: Laboratory Results - last 24 hr 08/31/24 09/01/24 22:28 00:05 WBC 15.6 H RBC 4.37 Hgb 11.4 L Hct 35.8 L MCV 81.9 MCH 26.1 L MCHC 31.8 L RDW Std Deviation 49.0 H RDW Coeff of [place] 16.9 H Plt Count 295 MPV 10.0 Immature Gran % (Auto) 1.600 H Neut % (Auto) 75.8 H Lymph % (Auto) 12.4 L [place] % (Auto) 8.7 Eos % (Auto) 1.0 Baso % (Auto) 0.5 Absolute Neuts (auto) 11.8 H Absolute Lymphs (auto) 1.93 Nucleated RBC % 0 Sodium 140 Potassium 3.4 L Chloride 107 Carbon Dioxide 24.0 Anion Gap 9 BUN 8 Creatinine 0.86 Estim Creat Clear Calc 91.57 Est GFR (MDRD) Af Amer 94 Est GFR (MDRD) Non-Af 77 BUN/Creatinine Ratio 9.3 L Glucose 91 Calcium 9.1 Serum , Qual NEGATIVE Urine Opiates Screen NEGATIVE Urine Methadone Screen NEGATIVE Ur Barbiturates Screen NEGATIVE Ur Phencyclidine Scrn NEGATIVE Ur Amphetamines Screen NEGATIVE MDMA (Ecstasy) Screen NEGATIVE U Benzodiazepines Scrn NEGATIVE Urine Cocaine Screen NEGATIVE U Cannabinoids Screen NEGATIVE Ur Drug Screen Comment Ethyl Alcohol 133.0 Discharge Plan Dx/Rx/DC Orders Clinical Impression: Alcohol abuse, Admitted to alcohol detoxification center, Acute alcohol intoxication Disposition Disposition: Acute Care Hospital [facility]
[2024-09-01 00:32] LABS: Internal QC Validated? YES +Cl - CLEAR BKGD; Pregnancy, Serum, hCG Quali. NEGATIVE Negative; Record Kit Lot#, Serum Preg. 872158
[2024-09-01 00:35] LABS: Anion Gap 9 (5-15); BUN 8 mg/dL (7-18); BUN/Creat Ratio 9.3 RATIO (10-20); Calcium,Total 9.1 mg/dL (8.5-10.1); Chloride 107 mmol/L (98-107); Creatinine, Serum 0.86 mg/dL (0.55-1.02); EST Glomerular Filtration Rate 77 mL/min (>60); Est Glom Filt Rate - Afr Amer 94 mL/min (>60); Estimated Creatinine Clearance 91.57 ml/min; Glucose 91 mg/dL (74-106); Potassium 3.4 mmol/L (3.5-5.1); Sodium Level 140 mmol/L (136-145)
[2024-09-01] MEDS: Ondansetron 4 MG/2 ML Vial IV ×2 (00:36→05:02)
--- NOTE | 2024-09-01 02:48 | PCM.HP.STD ---
HPI - General General Date of Admission: 09/01/24 Date of Service: 09/01/24 Chief Complaint: Alcohol withdrawal HPI Narrative CHARIS PATEL, is a 39 F who presents to the emergency room requesting alcohol detoxification. Patient had a last alcohol at 11:00 this evening and drank 25 ounces of hard alcohol vodka and/or fireball. Patient has significant past medical history of alcoholism and has been through detox 2 times previously and had been sober for a year and 2 months prior to this episode. 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 Patient states she is motivated to change her life to be a better mother. Patient denies any chest pain, shortness of breath, fevers or chills nausea vomiting or diarrhea. Patient is anxious and agitated at this time she will be admitted for alcohol detoxification program. [facility] Medical History Former smoker Desire for detoxification Alcohol abuse Migraines GERD (gastroesophageal reflux disease) Environmental allergies Asthma Depression Anxiety Alcohol abuse Cholecystectomy planned Home Medications ?Medication ?Instructions ?Recorded ?Last Taken ?Type fluoxetine 40 mg capsule (Prozac) 40 mg PO DAILY depression 07/04/22 07/03/22 History albuterol sulfate 90 mcg/actuation 2 puff inhalation Q6H PRN PRN 09/01/24 Unknown History aerosol inhaler wheezing cariprazine 1.5 mg capsule 1.5 mg PO DAILY 09/01/24 Unknown History (Vraylar) disulfiram 250 mg tablet 250 mg PO DAILY 09/01/24 Unknown History fluticasone propionate 50 2 spray intranasal DAILY 09/01/24 Unknown History mcg/actuation nasal spray,suspension ipratropium 0.5 mg-albuterol 3 mg 3 ml inhalation Q6H PRN shortness 09/01/24 Unknown History (2.5 mg base)/3 mL nebulization of breath or wheezing soln ketorolac 10 mg tablet 10 mg PO Q6H PRN PRN pain 09/01/24 Unknown History memantine 10 mg tablet 20 mg PO DAILY 09/01/24 Unknown History metoclopramide HCl 10 mg tablet 10 mg PO 4X/DAY PRN PRN migraine 09/01/24 Unknown History metoprolol succinate 25 mg 25 mg PO DAILY 09/01/24 Unknown History tablet,extended release 24 hr mirtazapine 7.5 mg tablet 7.5 mg PO QHS 09/01/24 Unknown History omeprazole 40 mg capsule,delayed 40 mg PO DAILY 09/01/24 Unknown History release ubrogepant 100 mg tablet (Ubrelvy) 100 mg PO DAILY PRN migraine 09/01/24 Unknown History headache Allergy/AdvReac Type Severity Reaction Status Date / Time adhesive tape AdvReac Rash Verified 08/31/24 23:17 Family History Mother Cancer History of Breast CA. Father Hypertension Surgical History S/P cholecystectomy H/O section H/O eye surgery Social History household members: spouse and family Smoking Status: Former smoker alcohol intake: current alcohol intake frequency: 3 or more drinks per day details: Daily 200-400 mL fireball, 1/2, 750 ml bottle 42 proof vodka daily. substance use type: does not use ROS Constitutional Constitutional: Denies chills or fever(s) Eyes Eyes: Denies blurry vision ENT HEENT: Denies abnormal hearing Cardiovascular Cardiovascular: Denies chest pain Respiratory/Chest Respiratory/Chest: Denies cough Gastrointestinal Gastrointestinal: Denies abdominal pain Genitourinary Genitourinary: Denies dysuria Musculoskeletal Musculoskeletal: Denies back pain Integumentary Integumentary: Denies dry skin Neurologic Neurologic: Denies abnormal speech Psychiatric Psychiatric: Reports anxiety Vital Signs Vital Signs Vital Signs: 08/31/24 23:17 09/01/24 00:17 09/01/24 00:30 Temperature 97.4 F L 98.0 F Temperature Source Temporal Oral Pulse Rate 112 H 86 86 Respiratory Rate 18 16 16 Blood Pressure 133/84 H 135/72 H 135/72 H Blood Pressure Mean 100 93 93 Blood Pressure Source Monitor Blood Pressure Position Supine Blood Pressure Location Left Arm Pulse Ox 97 96 96 Oxygen Delivery Method Room Air Room Air Room Air 09/01/24 01:00 09/01/24 02:00 09/01/24 02:41 Temperature 98.6 F Temperature Source Pulse Rate 86 77 77 Respiratory Rate 16 18 16 Blood Pressure 104/70 108/73 108/73 Blood Pressure Mean 81 84 84 Blood Pressure Source Blood Pressure Position Blood Pressure Location Pulse Ox 95 96 96 Oxygen Delivery Method Room Air Room Air Weight Weight: 205 lb 11.2 oz Body Mass Index (BMI) 37.6 Physical Exam Const oriented x3 General Appearance: cooperative HEENT normocephalic and head/scalp atraumatic Eyes PERRL Neck no lymphadenopathy Lymph Lymphatic: no lymphadenopathy noted Resp normal respiratory effort, normal air movement and clear to auscultation bilaterally Cardio regular rate, regular rhythm, S1 normal heart sound and S2 normal heart sound GI normal to inspection, nondistended, normoactive bowel sounds Extremity normal capillary refill Skin General Skin Exam: no breakdown Neuro no focal motor deficits and no sensory deficits noted Psych Mood & Affect: anxious Results Lab / Micro Data 09/01/24 00:05 09/01/24 00:05 Labs: Laboratory Results - last 24 hr 08/31/24 22:28: Urine Opiates Screen NEGATIVE, Urine Methadone Screen NEGATIVE, Ur Barbiturates Screen NEGATIVE, Ur Phencyclidine Scrn NEGATIVE, Ur Amphetamines Screen NEGATIVE, MDMA (Ecstasy) Screen NEGATIVE, U Benzodiazepines Scrn NEGATIVE, Urine Cocaine Screen NEGATIVE, U Cannabinoids Screen NEGATIVE, Ur Drug Screen Comment 09/01/24 00:05: WBC 15.6 H, RBC 4.37, Hgb 11.4 L, Hct 35.8 L, MCV 81.9, MCH 26.1 L, MCHC 31.8 L, RDW Std Deviation 49.0 H, RDW Coeff of [place] 16.9 H, Plt Count 295, MPV 10.0, Immature Gran % (Auto) 1.600 H, Neut % (Auto) 75.8 H, Lymph % (Auto) 12.4 L, [place] % (Auto) 8.7, Eos % (Auto) 1.0, Baso % (Auto) 0.5, Absolute Neuts (auto) 11.8 H, Absolute Lymphs (auto) 1.93, Nucleated RBC % 0, Sodium 140, Potassium 3.4 L, Chloride 107, Carbon Dioxide 24.0, Anion Gap 9, BUN 8, Creatinine 0.86, Estim Creat Clear Calc 91.57, Est GFR (MDRD) Af Amer 94, Est GFR (MDRD) Non-Af 77, BUN/Creatinine Ratio 9.3 L, Glucose 91, Calcium 9.1, Serum , Qual NEGATIVE, Ethyl Alcohol 133.0 Assessment & Plan Assessment/Plan (1) Admitted to alcohol detoxification center: PLAN: Plan 1 alcohol cessation program?admit patient to general medical floor, placed patient on CIWA protocol, consult case management for discharge planning. Charges/Coding Visit Charges Inpatient E&M: 03568 Init Hosp L2
[2024-09-01] MEDS: LORazepam 1 MG Tablet 2 MG PO (05:40)
[2024-09-01] MEDS: hydrOXYzine PAM 25 MG Capsule 50 MG PO ×3 (05:40→21:53)
[2024-09-01] MEDS: Gabapentin 300 MG Capsule PO (06:38)
[2024-09-01] MEDS: Dicyclomine 10 MG Capsule 20 MG PO ×2 (06:38→13:41)
--- NOTE | 2024-09-01 09:04 | PN.HOSP_ITS ---
Subjective Subjective Has some nausea. Her typical withdrawal symptoms. Objective Data Objective Data Vital Signs: Vital Signs Temp Pulse Resp BP Pulse Ox O2 Del Method 36.8 C 83 18 123/88 H 98 Room Air 09/01/24 05:30 09/01/24 05:30 09/01/24 05:30 09/01/24 05:30 09/01/24 05:30 09/01/24 05:59 Oxygen Delivery Method Room Air Weight: 89.584 kg Body Mass Index (BMI) 36.1 Lab / Micro Data 09/01/24 00:05 09/01/24 00:05 Labs: Laboratory Results - last 24 hr 08/31/24 22:28: Urine Opiates Screen NEGATIVE, Urine Methadone Screen NEGATIVE, Ur Barbiturates Screen NEGATIVE, Ur Phencyclidine Scrn NEGATIVE, Ur Amphetamines Screen NEGATIVE, MDMA (Ecstasy) Screen NEGATIVE, U Benzodiazepines Scrn NEGATIVE, Urine Cocaine Screen NEGATIVE, U Cannabinoids Screen NEGATIVE, Ur Drug Screen Comment 09/01/24 00:05: WBC 15.6 H, RBC 4.37, Hgb 11.4 L, Hct 35.8 L, MCV 81.9, MCH 26.1 L, MCHC 31.8 L, RDW Std Deviation 49.0 H, RDW Coeff of [place] 16.9 H, Plt Count 295, MPV 10.0, Immature Gran % (Auto) 1.600 H, Neut % (Auto) 75.8 H, Lymph % (Auto) 12.4 L, [place] % (Auto) 8.7, Eos % (Auto) 1.0, Baso % (Auto) 0.5, Absolute Neuts (auto) 11.8 H, Absolute Lymphs (auto) 1.93, Nucleated RBC % 0, Sodium 140, Potassium 3.4 L, Chloride 107, Carbon Dioxide 24.0, Anion Gap 9, BUN 8, Creatinine 0.86, Estim Creat Clear Calc 91.57, Est GFR (MDRD) Af Amer 94, Est GFR (MDRD) Non-Af 77, BUN/Creatinine Ratio 9.3 L, Glucose 91, Calcium 9.1, Serum , Qual NEGATIVE, Ethyl Alcohol 133.0 Physical Exam Const alert and no apparent distress HEENT head/scalp atraumatic and moist oral mucous membranes Assessment & Plan Assessment/Plan (1) Alcohol withdrawal: QUALIFIERS: Complication of substance-induced condition: u ncomplicated Qualified Code(s): F10.230 - Alcohol dependence with withdrawal, uncomplicated PLAN: DC lorazepam, start phenobarbital taper. Also hold ubrogepant while on phenobarbital Thiamine folate Addiction med saw and will reevaluate on 09/02 Charges/Coding Visit Charges Inpatient E&M: 89386 Subs Hosp L1
[2024-09-01] MEDS: Fluoxetine HCl 40 MG CAPSULE PO (09:10)
[2024-09-01] MEDS: Thiamine Hydrochloride 100 MG Tablet PO (09:10)
[2024-09-01] MEDS: Fluticasone 0.05% 1 SPRAY NASAL.SRY 2 SPRAY NASAL (09:10)
[2024-09-01] MEDS: Pantoprazole Sodium 40 MG Tablet PO (09:10)
[2024-09-01] MEDS: Folic Acid 1 MG Tablet PO (09:13)
[2024-09-01] MEDS: Phenobarbital 32.4 MG Tablet 64.8 MG PO ×4 (09:19→21:53)
--- NOTE | 2024-09-01 11:48 | ADDICTION ---
Met with pt to complete RAMP assessments and discuss d/c panning. Pt had just had a dose of phenobarbital and was reporting she was struggling to stay awake. Will meet with her tomorrow to discuss dc planning.
[2024-09-01] MEDS: Ondansetron 8 MG Tablet PO ×2 (12:43→21:53)
[2024-09-01] MEDS: Metoprolol(XL)Succ 25 MG Tablet PO (13:41)
[2024-09-01] MEDS: traZODone 100 MG Tablet PO (21:53)
[2024-09-01] MEDS: Mirtazapine 15 MG Tablet 7.5 MG PO (21:53)
[2024-09-02] VITALS (8 sets, daily range): BP systolic 97–123; BP diastolic 68–78; PULSE 81–105; RESP 12–18; TEMP 36.4–36.6; O2SAT 95–99
[2024-09-02] MEDS: Phenobarbital 32.4 MG Tablet 64.8 MG PO ×6 (02:27→21:55)
--- NOTE | 2024-09-02 07:59 | PCM.PN.HOSP ---
Reason for Visit Reason for Visit: Diagnoses Alcohol dependence with withdrawal, uncomplicated (09/01/24) Subjective Subjective Feeling well. Still with some nausea. Chronic tremor. Objective Data Objective Data Vital Signs: Vital Signs Temp Pulse Resp BP Pulse Ox O2 Del Method 36.6 C 81 16 108/78 95 Room Air 09/02/24 06:04 09/02/24 06:04 09/02/24 06:04 09/02/24 06:04 09/02/24 06:04 09/02/24 06:04 Oxygen Delivery Method Room Air Weight: 89.584 kg Body Mass Index (BMI) 36.1 Intake & Output: Intake and Output for Last 24 Hours 08/31/24 09/01/24 09/02/24 23:59 23:59 23:59 Intake Total 740 / 740 Balance 740 / 740 Lab / Micro Data 09/01/24 00:05 09/01/24 00:05 Physical Exam Const alert and no apparent distress Constitutional Narrative: slight tremor of UE. HEENT head/scalp atraumatic and moist oral mucous membranes Resp normal respiratory effort and no retractions Assessment & Plan Assessment/Plan (1) Alcohol withdrawal: QUALIFIERS: Complication of substance-induced condition: uncomplicated Qualified Code(s): F10.230 - Alcohol dependence with withdrawal, uncomplicated PLAN: Phenobarbital taper. Also hold ubrogepant while on phenobarbital Thiamine folate Patient to follow up with [facility] as outpt. Plan on 1 more day and if stable 09/03, discharge home. Charges/Coding Visit Charges Inpatient E&M: 58082 Subs Hosp L1
[2024-09-02] MEDS: Ondansetron 8 MG Tablet PO (09:27)
[2024-09-02] MEDS: Pantoprazole Sodium 40 MG Tablet PO (09:28)
[2024-09-02] MEDS: Folic Acid 1 MG Tablet PO (09:28)
[2024-09-02] MEDS: hydrOXYzine PAM 25 MG Capsule 50 MG PO ×2 (09:28→21:56)
[2024-09-02] MEDS: Fluoxetine HCl 40 MG CAPSULE PO (09:28)
[2024-09-02] MEDS: Metoprolol(XL)Succ 25 MG Tablet PO (09:29)
[2024-09-02] MEDS: Thiamine Hydrochloride 100 MG Tablet PO (09:29)
[2024-09-02] MEDS: Gabapentin 300 MG Capsule PO (14:58)
[2024-09-02] MEDS: Dicyclomine 10 MG Capsule 20 MG PO ×2 (14:58→21:56)
--- NOTE | 2024-09-02 15:05 | CASEMGMT ---
Addiction Medicine specialist Stacy said patient plans on following up with [facility]. Stacy will be patient's therapist. 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
[2024-09-02] MEDS: Mirtazapine 15 MG Tablet 7.5 MG PO (21:56)
[2024-09-02] MEDS: traZODone 100 MG Tablet PO (21:56)
[2024-09-02] MEDS: 0.9% Saline Lock 10 ML Syringe IV (21:57)
[2024-09-03] MEDS: Phenobarbital 32.4 MG Tablet 64.8 MG PO ×3 (01:41→09:56)
[2024-09-03] MEDS: Ondansetron 8 MG Tablet PO ×2 (01:41→09:56)
[2024-09-03] MEDS: Gabapentin 300 MG Capsule PO ×2 (01:41→09:56)
[2024-09-03 01:45] VITALS: BP 97/69; PULSE 87; RESP 18; TEMP 36.9; O2SAT 95
[2024-09-03] MEDS: Dicyclomine 10 MG Capsule 20 MG PO (05:54)
[2024-09-03] MEDS: hydrOXYzine PAM 25 MG Capsule 50 MG PO ×2 (05:54→09:56)
[2024-09-03 05:55] VITALS: BP 99/72; PULSE 84; RESP 18; TEMP 36.8; O2SAT 95
[2024-09-03] MEDS: Pantoprazole Sodium 40 MG Tablet PO (08:42)
[2024-09-03] MEDS: Folic Acid 1 MG Tablet PO (08:42)
[2024-09-03] MEDS: Fluoxetine HCl 40 MG CAPSULE PO (08:42)
[2024-09-03] MEDS: Thiamine Hydrochloride 100 MG Tablet PO (08:42)
--- NOTE | 2024-09-03 09:29 | DS.PCM_ITS ---
Providers Date of Admission: 09/01/24 Primary Care Physician: Hilary Roman PLANER OPERATOR-C Reason For Visit: ALCOHOL WITHDRAWAL/DETOXIFICATION Diagnosis Discharge Diagnosis (1) Alcohol withdrawal: Status: Resolved Code(s): F10.239 - Alcohol dependence with withdrawal, unspecified Qualifiers: Complication of substance-induced condition: uncomplicated Qualified Code(s): F10.230 - Alcohol dependence with withdrawal, uncomplicated Plan: Phenobarbital taper. Also hold ubrogepant while on phenobarbital Thiamine folate [facility] Plan on 1 more day and if stable 09/03, discharge home. Medications at Discharge Home Medications fluoxetine 40 mg capsule (Prozac) 40 mg PO DAILY depression 07/04/22 albuterol sulfate 90 mcg/actuation aerosol inhaler 2 puff inhalation Q6H PRN PRN wheezing 09/01/24 fluticasone propionate 50 mcg/actuation nasal spray,suspension 2 spray intranasal DAILY PRN allergies 09/01/24 ipratropium 0.5 mg-albuterol 3 mg (2.5 mg base)/3 mL nebulization soln 3 ml inhalation Q6H PRN shortness of breath or wheezing 09/01/24 memantine 10 mg tablet 10 mg PO BID migraines 09/01/24 metoclopramide HCl 10 mg tablet 10 mg PO 4X/DAY PRN PRN migraine 09/01/24 metoprolol succinate 25 mg tablet,extended release 24 hr 25 mg PO DAILY 09/01/24 mirtazapine 7.5 mg tablet 7.5 mg PO QHS 09/01/24 omeprazole 40 mg capsule,delayed release 40 mg PO DAILY 09/01/24 ubrogepant 100 mg tablet (Ubrelvy) 100 mg PO DAILY PRN migraine headache 09/01/24 multivitamin 1 tab PO DAILY #30 tabs 09/03/24 Hospital Course Operations None Procedures None Physical Exam Const alert and no apparent distress Constitutional Narrative: flat affect. Weight / BMI Weight Weight: 89.584 kg Body Mass Index (BMI) 36.1 ABG / Lab / Microbiology Data 09/01/24 00:05 09/01/24 00:05 D/C Instructions Discharge Diet: No restrictions DC O2, CPAP, BIPAP Needs Additional Home O2 Discharge instructions: No DC home with Oxygen: No Meaningful Use Info Meaningful Use Meaningful Use Diagnoses (Choose all that apply): None applicable Ischemic Stroke Statin Dosing Therapy Reference: STATIN DOSE THERAPY REFERENCE: * Patients > 75 years receive moderate or high dose statin therapy. * Patients 75 years or YOUNGER should receive HIGH intensity statin dose unless contraindicated. You will be required to document reason for non-treatment if statin daily dose does not meet guidelines. HIGH DOSE STATIN THERAPY DAILY Atorvastatin > than or = to 40 mg Rosuvastatin > than or = to 20 mg Amlodipine + Atorvastatin > than or = to 2.5/40 mg Ezetimibe + Simvastatin 10/80 mg Simvastatin 80mg Discharge Plan Admission Admit Date/Time: 09/01/24 02:51 Primary Reason for Your Visit: alcohol withdrawal Attending Provider: Piero Araujo Primary Care Provider: Hilary Roman Consulting Providers: Peng Scott Instructions Additional Instructions / Restrictions: Follow up with [facility] for further outpatient services for your alcoholism. Discharge Orders/Prescriptions Prescriptions: New multivitamin Tablet 1 tab PO DAILY Qty: 30 0RF Continued fluoxetine [Prozac] 40 mg Capsule 40 mg PO DAILY memantine 10 mg tablet 10 mg PO BID mirtazapine 7.5 mg tablet 7.5 mg PO QHS omeprazole 40 mg capsule,delayed release(DR/EC) 40 mg PO DAILY metoprolol succinate 25 mg tablet extended release 24 hr 25 mg PO DAILY albuterol sulfate 90 mcg/actuation HFA aerosol inhaler 2 puff inhalation Q6H PRN PRN (Reason: wheezing) fluticasone propionate 50 mcg/actuation spray,suspension 2 spray INTRANASAL DAILY PRN (Reason: allergies) metoclopramide HCl 10 mg tablet 10 mg PO 4X/DAY PRN PRN (Reason: migraine) Ubrelvy 100 mg tablet 100 mg PO DAILY PRN (Reason: migraine headache) Rx Instructions: take 2nd dose 2 hours after first dose as needed for migraine ipratropium-albuterol 0.5 mg-3 mg(2.5 mg base)/3 mL solution for nebulization 3 ml inhalation Q6H PRN (Reason: shortness of breath or wheezing) Referrals / Follow Up: Care Physician,No Primary [Non-Staff] - Hilary Roman, PLANER OPERATOR-C [Primary Care Provider] - Disposition Disposition (needs filled in before D/C Order can be placed): Home, Self Care Charges/Coding Visit Charges Inpatient E&M: 58270 Disch Hosp
[2024-09-03 09:55] VITALS: BP 108/56; PULSE 92; RESP 18; TEMP 36.6; O2SAT 97
[2024-09-03 09:56] VITALS: PULSE 92
[2024-09-03] MEDS: Metoprolol(XL)Succ 25 MG Tablet PO (09:56)
--- NOTE | 2024-09-03 13:08 | CHAPLAIN ---
Type of Pastoral Visit _x__ Initial Visit ___ Follow-up Visit ___ On-call Visit ___ General Patient Visit ___ Spiritual Assessment ___ Family Conference ___ Bereavement ___ Rapid Response ___ Code Blue ___ Other (describe below) Pastoral Care Referral From _x__ Patient ___ Family ___ Nurse ___ Physician ___ Store Worker ___ Commercial Trailer Truck Driver ___ Other (describe below) Sacrament/Intervention _x__ Active listening ___ Anointing ___ Islam ___ Bereavement ___ Communion _x__ Daylin exploration ___ _x__ Life review _x__ Prayer ___ Reconciliation ___ Sacrament of Sick _x__ Supportive presence ___ Wedding ___ Other (describe below) Pastoral Comments patient acknowledges her past recovery and recent failure at sobriety; pt expresses disappointment in herself, guilt, shame, and desire for more courage in the future; pt is spiritual and has daylin in God which gives her an opening for this conversation and for hope in the future; pt is given time to talk, express herself, and receive presence and prayer
== END 2024-09-03 13:35 | disposition home or self-care (01) | DRG 897 ==
LOC: ED 09-01 00:54 → PCU 09-01 04:41
PROVIDERS: Admitting Provider Family Medicine; Emergency Provider Emergency Medicine; PCP Nurse Practitioner Family
DX: F10.229 Alcohol dependence with intoxication, unspecified (principal); F10.239 Alcohol dependence with withdrawal, unspecified; J45.909 Unspecified asthma, uncomplicated; F32.A Depression, unspecified; F41.9 Anxiety disorder, unspecified; Y90.6 Blood alcohol level of 120-199 mg/100 ml; Z79.899 Other long term (current) drug therapy; Z87.891 Personal history of nicotine dependence
CPT/HCPCS: 80048; 80307; 82077; 84703; 85025; 99283; A4216; J2405